=== PATIENT | male | born 1960 | race Caucasian/White ===

== ENCOUNTER 2018-09-22 11:05 | Emergency (ER) | payer MEDICARE, SELFPAY ==
[2018-09-22 11:13] VITALS: BP 175/98; PULSE 59; RESP 18; TEMP 36.8; O2SAT 98; BMI 22.9
--- NOTE | 2018-09-22 11:35 | DI.US.S_ITS ---
PROCEDURE: US EXTREMITY NONVASC UPPER LT INDICATIONS: LEFT FOREARM LUMP TECHNIQUE: Real-time scanning was performed of the left upper medial forearm lump, with image documentation. COMPARISON: None. FINDINGS: A 4.7 x 2.1 x 2.3 cm mass without internal vascularity which is comprised of both cystic and solid abnormalities is present, etiology uncertain. IMPRESSION: Extremity mass discussed above may represent a low-grade infection or even neoplasm. Depending on the clinical status followup by surgical consultation may be warranted. Further assessment could be obtained utilizing contrast enhanced MR scanning. Dictated by: Luke Aguirre M.D. on 09/22/2018 at 12:55 Approved by: Luke Aguirre M.D. on 09/22/2018 at 12:56
--- NOTE | 2018-09-22 11:35 | DI.RAD.S_ITS ---
PROCEDURE: XR ELBOW LT MIN 3V INDICATIONS: pain left elbow, felt pop while fishing TECHNIQUE: 3 views of the elbow were acquired. COMPARISON: None. FINDINGS: Bones: No fractures or dislocations. No suspicious bony lesions. Soft tissues: No elbow joint effusion. No suspicious soft tissue calcifications. IMPRESSION: Normal for age, source of current symptoms is not seen. Dictated by: Luke Aguirre M.D. on 09/22/2018 at 12:07 Approved by: Luke Aguirre M.D. on 09/22/2018 at 12:07
--- NOTE | 2018-09-22 11:54 | ED.UPPEXIN ---
HPI - Extremity Injury (Upper) General Chief Complaint: Extremity Injury, Upper Stated Complaint: LEFT ARM STRAINED/PAIN X60 DAYS Time Seen by Provider: 09/22/18 11:26 Source: patient Mode of arrival: ambulatory Limitations: no limitations History of Present Illness HPI narrative: This is a 57-year-old male comes to the emergency department with several months of left elbow pain. Patient states that it started when he was fishing for prolonged period time. He felt like there was pull on that arm Um during the entire time and at some point he felt a pop and started having pain. Patient states the pain has continued since then. Motor motion such as supination pronation seems to make it worse. He feels like there is a little bit weakness on that side compared to the other. Patient has noticed there is a little bit of a lump that sort of seems to come and go. He has not had any redness, no swelling no other signs of infection. He has been using heat and ice alternating for pain control as well as casually THC. Related Data Previous Rx's Medication Instructions Recorded amoxicillin-pot clavulanate 1 tab PO BID #20 tab 09/22/18 [Augmentin] Allergies Allergy/AdvReac Type Severity Reaction Status Date / Time No Known Drug Allergies Allergy Verified 09/22/18 11:59 Review of Systems Review of Systems All systems reviewed & are unremarkable except as noted in HPI and below Constitutional Denies fever(s) and Denies weakness Musculoskeletal Denies atrophy, Reports arthralgias (Shoulder and elbow), Denies joint swelling, Reports muscle weakness, Denies numbness, Denies tingling and Reports other (A lump next elbow) Integumentary/Breasts Denies rash, Denies unusual bruising and Denies wounds Neurologic Denies numbness, Denies tingling, Denies paresthesias and Denies weakness [facility] Social History Smoking Status: Former smoker substance use type: marijuana Exam Narrative Exam Narrative: GENERAL: Alert and oriented x three, well-nourished, well-appearing male in mild distress. HEENT: Head normocephalic, atraumatic, EOMI, pupils reactive, face symmetric, moist mucous membranes NECK: Supple, full range of motion CARDIOVASCULAR: Regular rate and rhythm without murmurs, rubs or gallops. RESPIRATORY: Breath sounds equal bilaterally, no wheezes rales or rhonchi. EXTREMITIES: Normal range of motion, patient has 5/5 strength with push and pull as well as equal miniature model maker. Patient does have some discomfort with pronation supination. He has what appears to be some soft tissue swelling and a circular region just distal to the elbow in the area of the radial head, it is soft, it is not fluctuance there does not have a palpable mass or nodule or lymph node. There is no erythema or warmth, there is no drainage. Patient has 2+ radial pulse. He does not have any other bony tenderness with palpation. He has full range of motion otherwise. Neurovascularly intact NEUROLOGICAL: Cranial nerves II through XII grossly intact. Moving all extremities SKIN: Warm, dry, no petechiae, no rashes or lesions. Initial Vital Signs Initial Vital Signs: Vital Signs Temperature 98.3 F 09/22/18 11:13 Pulse Rate 59 L 09/22/18 11:13 Respiratory Rate 18 09/22/18 11:13 Blood Pressure 175/98 H 09/22/18 11:13 Pulse Oximetry 98 09/22/18 11:13 Course Orders Ordered: ED Orders 09/22/18 11:35 US extremity nonvasc upper lt Stat XR elbow LT min 3V Stat Vital Signs - 8 hr 09/22/18 13:38 Pulse Rate 56 L Respiratory Rate 15 Blood Pressure [Right Arm] 183/93 H Pulse Oximetry 100 MDM - Extremity Injury (Upper) MDM Narrative Medical decision making narrative: Patient a mass on his ultrasound. Spoke with Dr. Marquez will follow with the patient of for possible biopsy he asks that patient follow up after 1 week oral abx. We are going to cover him with antibiotics for a week to see if this improves his symptoms although he has not had any infectious signs recently. Also given a prescription for outpatient MRI although he may not be able to get this obtained prior to seeing surgery for the biopsy. But this is not required if he is not able to. I discussed the importance of follow-up with the patient he is aware. X-ray shows no bony changes. Discharge Plan Departure Patient Disposition: Home Clinical Impression: Mass of left forearm Discharge Date/Time: 09/22/18 13:40 Interventions: ED Discharge Assessment Last Done: 09/22/18 13:41 Activity Restrictions/Additional Instructions: Follow-up in the next 7-10 days for recheck and biopsy of the mass in your left forearm. Call [place] morning for an appointment let the office know that you are following up for a lump in her forearm that is going to be biopsied. I spoke with Dr. Marquez today about your care. Take antibiotics until they are completely gone. Start them today. Even given a prescription for an MRI soft tissue of the upper extremity. Call Monday on the number provided to set up a appointment. Return to ER rapidly increasing swelling, new weakness, new numbness or other new or concerning symptoms. Prescriptions: New amoxicillin-pot clavulanate [Augmentin] 875-125 mg tablet 1 tab PO BID Qty: 20 RF: 0 Referrals: Naveen Marquez MD [Physician] -
[2018-09-22 13:38] VITALS: BP 183/93; PULSE 56; RESP 15; O2SAT 100
== END 2018-09-22 13:40 | disposition home or self-care (01) ==
PROVIDERS: Emergency Provider Emergency Medicine
DX: R22.32 Localized swelling, mass and lump, left upper limb (principal); X50.1XXA Overexertion from prolonged static or awkward postures, initial encounter
CPT/HCPCS: 73080; 76882; 99282; 99284

== ENCOUNTER 2022-12-14 10:35 | Emergency (ER) | payer MEDICARE, SELFPAY ==
--- NOTE | 2022-12-14 | DI.CT.S_ITS ---
PROCEDURE: CT ANGIO HEAD AND NECK INDICATIONS: MASS TECHNIQUE: After the administration of intravenous contrast, 1 mm thick sections acquired from the aortic arch through the [place]. Post-contrast 4.5 mm thick sections then re-acquired from the foramen magnum to the vertex. 3-dimensional [id number]-[id number] (MIP) and/or volume rendering reformats were acquired of the central intracranial vasculature and neck separately. For radiation dose reduction, the following was used: automated exposure control, adjustment of mA and/or kV according to patient size. COMPARISON: None. FINDINGS: Large enhancing left frontal lobe mass with multiple areas of intralesional hemorrhage. The mass primarily involves the left frontal lobar white matter with some extension to the cortex, however. Findings highly suspicious for glioblastoma. Maximum axial dimensions of the lesion are approximately 6.5 x 5.5 cm and maximum craniocaudal dimension is approximately 6.2 cm. There is extensive vasogenic edema in the left frontal lobe which produces moderate to severe mass effect manifesting as approximately 1.5 cm [id number] midline shift. There is near complete effacement of the 3rd ventricle and left lateral ventricle. Mild effacement of the perimesencephalic and ambient cisterns indicating an element of uncal herniation as well. No tonsillar herniation at this time. The aqua duct 4th ventricle are patent. No flow-limiting stenosis in the major intracranial or cervical arterial circulation. IMPRESSION: Large enhancing left frontal lobe mass with adjacent vasogenic edema, highly suspicious for glioblastoma. Significant moderate to severe mass effect with up to 1.5 cm left right midline shift and near complete effacement of the left lateral ventricle as well as the 3rd ventricle. Urgent neuro-surgical consultation recommended. Findings of this exam and the noncontrast head CT were discussed at 12:20 p.m. on 12/14/2022. Any quantitative measurements of stenosis were performed using NASCET criteria. Dictated by: Melvin Lynch M.D. on 12/14/2022 at 12:20 Approved by: Melvin Lynch M.D. on 12/14/2022 at 12:27
[2022-12-14 10:41] VITALS: BP 165/94; PULSE 95; RESP 15; TEMP 37.6; O2SAT 96; BMI 22.9
--- NOTE | 2022-12-14 10:47 | DI.RAD.S_ITS ---
ROCEDURE: XR CHEST 1V INDICATIONS: suspected sepsis TECHNIQUE: One view of the chest was acquired. COMPARISON: [facility], , CHEST 1 VIEW, 03/28/2015, 12:23. FINDINGS: Surgical changes and devices: Question an epidural catheter or electrode in the lower thoracic spine. Lungs and pleura: Lungs are clear. No pleural effusions or pneumothorax. Mediastinum: Mediastinal contours appear normal. Heart size is normal. Bones and chest wall: No suspicious bony lesions. Overlying soft tissues appear unremarkable. IMPRESSION: No acute cardiopulmonary disease. Dictated by: Simona Campoverde M.D. on 12/14/2022 at 10:24 Approved by: Simona Campoverde M.D. on 12/14/2022 at 10:25
[2022-12-14 11:06] LABS: Add Manual Diff / Slide Review NO; Basophils Absolute Auto 100 /uL (0-100); Basophils Percent Auto 0.5 % (0-2); Eosinophils Absolute Auto 100 /uL (0-450); Hematocrit 43.8 % (41-53); Lymphocytes Absolute Auto 1400 /uL (1100-4500); Lymphocytes Percent Auto 12.5 % (25-40); Mean Corpuscular HGB Conc 34.3 % (30-36); Mean Corpuscular Hemoglobin 31.2 PG (26-34); Monocytes Absolute Auto 1000 /uL (0-900); Monocytes Percent Auto 8.5 % (3-14); Neutrophils Absolute Auto 8800 /uL (1500-7000); Neutrophils Percent Auto 77.5 % (50-75); Platelet Count 199 X10^3/uL (150-400); Red Blood Cell Count 4.81 X10^6/uL (4.5-5.9); Red Cell Distribution Width 13.9 % (11.6-14.8); White Blood Cell Count 11.3 X10^3/uL (4.5-11.0)
[2022-12-14 11:12] LABS: INR 1.3 (0.9-1.3)
[2022-12-14 11:15] LABS: Alanine Aminotransferase 19 IU/L (<50); Alkaline Phosphatase 72 U/L (38-126); Aspartate Aminotransferase 23 IU/L (17-59); BUN Creatinine Ratio 23.9 (6-22); Bilirubin Total 0.9 mg/dL (0.2-1.3); Blood Urea Nitrogen 17 mg/dL (9-20); Calcium 9.6 mg/dL (8.4-10.2); Carbon Dioxide 22 mmol/L (22-32); Chloride 103 mmol/L (98-107); Estimated Glomerular Filt Rate > 60 mL/min (>60); Glucose 128 mg/dL (80-110); Lipase 49 U/L (23-300); PTT Partial Thromboplastin Tim 28 SECONDS (26-36); Potassium 3.4 mmol/L (3.4-5.1); Sodium 140 mmol/L (137-145); Total Protein 8.6 g/dL (6.3-8.2)
[2022-12-14 11:31] LABS: Procalcitonin 0.05 ng/mL (<0.5)
[2022-12-14 11:34] LABS: Influenza A - CEPHEID Flu A NEGATIVE (NEGATIVE); Influenza B - CEPHEID Flu B NEGATIVE (NEGATIVE); Respiratory Syncytial Virus Negative (Negative)
[2022-12-14 11:35] LABS: COVID-19 CEPHEID 4-PLEX PCR Negative (Negative)
--- NOTE | 2022-12-14 11:41 | ED_ITS ---
HPI - Neuro Symptoms/Deficit <Evelyne Skaggs DO - Last Filed: 12/19/22 06:50> General Chief Complaint: Neuro Symptoms/Deficit Stated Complaint: incoherent, cant hold a conversation, confusion Time Seen by Provider: 12/14/22 11:16 Source: patient Mode of arrival: Ambulatory History of Present Illness HPI Narrative: Patient is a 62-year-old male history of seizures on Keppra presenting with friend today for 1 week of confusion. Friend states that patient is generally not making any sense. He has been stumbling around. Patient states that he is not felt quite himself. He has low-grade fever here in the ED but he denies any chest pain cough nausea vomiting painful or frequent urination. He does have a slight headache. He reports that he was diagnosed with seizures in [place] by a neurologist who started him on Keppra a couple of months ago. He reports no alcohol abuse he says he had 3 seizures, but it is unclear why he is having seizures. He denies any weakness, numbness tingling. On Anticoagulants: No Related Data Previous Rx's Medication Instructions Recorded amoxicillin 875 mg-potassium 1 tab PO BID #20 tabs 09/22/18 clavulanate 125 mg tablet (Augmentin) Allergies Allergy/AdvReac Type Severity Reaction Status Date / Time ibuprofen AdvReac Mild itching Verified 12/14/22 10:41 Review of Systems <Evelyne Skaggs DO - Last Filed: 12/19/22 06:50> Review of Systems ROS Unobtainable: All systems reviewed & are unremarkable except as noted in HPI and below Hematologic/Lymphatic On Anticoagulants: No Patient History <Evelyne Skaggs DO - Last Filed: 12/19/22 06:50> Surgical History History of back surgery Family History Mother Hypertension Diabetes mellitus Social History marital status: unmarried,living together household members: significant other occupational status: unemployed Smoking Status: Former smoker alcohol intake: never substance use type: marijuana Smoking Status: Former smoker alcohol intake frequency: holidays/special occasions only Substance Use Type: does not use Exam <Evelyne Skaggs DO - Last Filed: 12/19/22 06:50> Initial Vital Signs Initial Vital Signs: Vital Signs Temperature 99.7 F H 12/14/22 10:41 Pulse Rate 95 H 12/14/22 10:41 Respiratory Rate 15 12/14/22 10:41 Blood Pressure 165/94 H 12/14/22 10:41 Pulse Oximetry 96 12/14/22 10:41 Oxygen Delivery Method 12/14/22 10:41 GENERAL: Alert pleasant makes 62-year-old male and in no acute distress. HEENT: Head atraumatic,EOMI, pupils reactive, face symmetric, moist mucous membranes CARDIOVASCULAR: Regular rate and rhythm without murmurs, rubs or gallops. RESPIRATORY: Breath sounds equal bilaterally, no wheezes rales or rhonchi. ABDOMEN: Soft, nontender. Normoactive bowel sounds all 4 quadrants. No guarding or rebound. EXTREMITIES: Normal range of motion, no clubbing or edema. Neurovascularly intact NEUROLOGICAL: Alert and oriented x4.Normal gait and speech. Cranial nerves II through XII grossly intact. Good [id number], good [id number], strength equal bilaterally, no dysarthria or aphasia, sensation in tact to soft touch bilaterally, no visual changes, no facial droop SKIN: Warm, dry, no laceration, no petechiae, no rashes or lesions. <Jorge Reveles MD - Last Filed: 12/20/22 07:04> Initial Vital Signs Initial Vital Signs: Vital Signs Temperature 99.7 F H 12/14/22 10:41 Pulse Rate 95 H 12/14/22 10:41 Respiratory Rate 15 12/14/22 10:41 Blood Pressure 165/94 H 12/14/22 10:41 Pulse Oximetry 96 12/14/22 10:41 Oxygen Delivery Method 12/14/22 10:41 <Meet Roper DO - Last Filed: 12/16/22 23:28> Initial Vital Signs Initial Vital Signs: Vital Signs Temperature 99.7 F H 12/14/22 10:41 Pulse Rate 95 H 12/14/22 10:41 Respiratory Rate 15 12/14/22 10:41 Blood Pressure 165/94 H 12/14/22 10:41 Pulse Oximetry 96 12/14/22 10:41 Oxygen Delivery Method 12/14/22 10:41 <Any Corbett DO - Last Filed: 12/17/22 07:08> Initial Vital Signs Initial Vital Signs: Vital Signs Temperature 99.7 F H 12/14/22 10:41 Pulse Rate 95 H 12/14/22 10:41 Respiratory Rate 15 12/14/22 10:41 Blood Pressure 165/94 H 12/14/22 10:41 Pulse Oximetry 96 12/14/22 10:41 Oxygen Delivery Method 12/14/22 10:41 Scores <Evelyne Skaggs DO - Last Filed: 12/19/22 06:50> NIH Stroke Scale Level of Conciousness: Alert, keenly responsive Ask month/age: Answers both questions correctly. Open/close eyes, close hand: Performs both tasks correctly Best gaze horizontal: Normal Visual freedman: No visual loss Facial palsy: Normal symetrical movement Left arm drift: No drift for full 10 sec Right arm drift: No drift for full 10 sec Left leg drift: No drift for full 5 sec Right leg drift: No drift for full 5 sec Limb ataxia: Absent Sensory on face/arms/legs: Normal, no sensory loss Best language: No aphasia, normal Dysarthria: Normal Extinction or inattention: No abnormality Total NIH Stroke scale score: 0 <Jorge Reveles MD - Last Filed: 12/20/22 07:04> NIH Stroke Scale Total NIH Stroke scale score: 0 <Meet Roper DO - Last Filed: 12/16/22 23:28> NIH Stroke Scale Total NIH Stroke scale score: 0 <Any Corbett DO - Last Filed: 12/17/22 07:08> NIH Stroke Scale Total NIH Stroke scale score: 0 Course <Evelyne Skaggs DO - Last Filed: 12/19/22 06:50> Orders Ordered: Discontinued Medications Acetaminophen (Acetaminophen 325 Mg Tablet) 650 mg PO Q6H [facility] Last Admin: 12/16/22 23:25 Dose: 650 mg Documented By: Admin: 12/16/22 17:22 Dose: 650 mg Documented By: Admin: 12/16/22 11:24 Dose: 650 mg Documented By: Admin: 12/16/22 05:17 Dose: Not Given Documented By: Admin: 12/15/22 23:06 Dose: Not Given Documented By: Admin: 12/15/22 17:50 Dose: Not Given Documented By: Admin: 12/15/22 14:02 Dose: Not Given Documented By: Admin: 12/15/22 05:25 Dose: Not Given Documented By: Admin: 12/14/22 23:35 Dose: Not Given Documented By: Admin: 12/14/22 17:30 Dose: 650 mg Documented By: VELMA Dexamethasone (Dexamethasone 10 Mg/Ml Vial) 10 mg IV NOW ONE Stop: 12/14/22 12:24 Last Admin: 12/14/22 12:31 Dose: 10 mg Documented By: DEEPA(2) Dexamethasone (Dexamethasone 4 Mg/Ml Vial) 4 mg IV Q6H [facility] Last Admin: 12/16/22 23:24 Dose: 4 mg Documented By: Admin: 12/16/22 17:30 Dose: 4 mg Documented By: Admin: 12/16/22 11:23 Dose: 4 mg Documented By: Admin: 12/16/22 04:23 Dose: 4 mg Documented By: Admin: 12/15/22 23:06 Dose: 4 mg Documented By: Admin: 12/15/22 17:50 Dose: 4 mg Documented By: Admin: 12/15/22 14:03 Dose: 4 mg Documented By: Admin: 12/15/22 05:19 Dose: 4 mg Documented By: Admin: 12/14/22 23:34 Dose: 4 mg Documented By: Admin: 12/14/22 17:30 Dose: 4 mg Documented By: VELMA Sodium Chloride (Normal Saline 0.9%) 1,000 mls @ 1,000 mls/hr IV BOLUS ONE Stop: 12/14/22 11:46 Last Infusion: 12/14/22 13:00 Dose: 0 mls/hr Documented By: Admin: 12/14/22 11:46 Dose: 1,000 mls/hr Documented By: VELMA Levetiracetam 500 mg/ Sodium (Chloride) 105 mls @ 420 mls/hr IV Q12H [facility] Last Infusion: 12/16/22 19:00 Dose: 0 mls/hr Documented By: Admin: 12/16/22 17:30 Dose: 420 mls/hr Documented By: Infusion: 12/16/22 05:00 Dose: 0 mls/hr Documented By: Admin: 12/16/22 04:23 Dose: 420 mls/hr Documented By: Infusion: 12/15/22 18:25 Dose: 0 mls/hr Documented By: Admin: 12/15/22 17:46 Dose: 420 mls/hr Documented By: Infusion: 12/15/22 05:35 Dose: 0 mls/hr Documented By: Admin: 12/15/22 05:19 Dose: 420 mls/hr Documented By: Infusion: 12/14/22 18:04 Dose: 0 mls/hr Documented By: Admin: 12/14/22 17:29 Dose: 420 mls/hr Documented By: KM Naloxone HCl (Naloxone 0.4 Mg/Ml Vial) 0.2 mg IV Q2MIN PRN PRN Reason: Opiate Reversal Vital Signs Vital signs: Vital Signs - 8 hr 12/17/22 02:20 Pulse Oximetry 97 <Jorge Reveles MD - Last Filed: 12/20/22 07:04> Course Course Narrative: 7:[address] Skaggs patient voiding orders have been placed. Patient on multiple waiting list for transfer. Patient is DNR with selective treatments. Daily labs have been ordered as well as medications. Neurosurgical service has been contacted. Orders Ordered: Discontinued Medications Acetaminophen (Acetaminophen 325 Mg Tablet) 650 mg PO Q6H [facility] Last Admin: 12/16/22 23:25 Dose: 650 mg Documented By: Admin: 12/16/22 17:22 Dose: 650 mg Documented By: Admin: 12/16/22 11:24 Dose: 650 mg Documented By: Admin: 12/16/22 05:17 Dose: Not Given Documented By: Admin: 12/15/22 23:06 Dose: Not Given Documented By: Admin: 12/15/22 17:50 Dose: Not Given Documented By: Admin: 12/15/22 14:02 Dose: Not Given Documented By: Admin: 12/15/22 05:25 Dose: Not Given Documented By: Admin: 12/14/22 23:35 Dose: Not Given Documented By: Admin: 12/14/22 17:30 Dose: 650 mg Documented By: VELMA Dexamethasone (Dexamethasone 10 Mg/Ml Vial) 10 mg IV NOW ONE Stop: 01/18/23 12:24 Last Admin: 12/14/22 12:31 Dose: 10 mg Documented By: DEEPA(2) Dexamethasone (Dexamethasone 4 Mg/Ml Vial) 4 mg IV Q6H [facility] Last Admin: 12/16/22 23:24 Dose: 4 mg Documented By: Admin: 12/16/22 17:30 Dose: 4 mg Documented By: Admin: 12/16/22 11:23 Dose: 4 mg Documented By: Admin: 12/16/22 04:23 Dose: 4 mg Documented By: Admin: 12/15/22 23:06 Dose: 4 mg Documented By: Admin: 12/15/22 17:50 Dose: 4 mg Documented By: Admin: 12/15/22 14:03 Dose: 4 mg Documented By: Admin: 12/15/22 05:19 Dose: 4 mg Documented By: Admin: 12/14/22 23:34 Dose: 4 mg Documented By: Admin: 12/14/22 17:30 Dose: 4 mg Documented By: VELMA Sodium Chloride (Normal Saline 0.9%) 1,000 mls @ 1,000 mls/hr IV BOLUS ONE Stop: 12/14/22 11:46 Last Infusion: 12/14/22 13:00 Dose: 0 mls/hr Documented By: Admin: 12/14/22 11:46 Dose: 1,000 mls/hr Documented By: VELMA Levetiracetam 500 mg/ Sodium (Chloride) 105 mls @ 420 mls/hr IV Q12H [facility] Last Infusion: 12/16/22 19:00 Dose: 0 mls/hr Documented By: Admin: 12/16/22 17:30 Dose: 420 mls/hr Documented By: Infusion: 12/16/22 05:00 Dose: 0 mls/hr Documented By: Admin: 12/16/22 04:23 Dose: 420 mls/hr Documented By: Infusion: 12/15/22 18:25 Dose: 0 mls/hr Documented By: Admin: 12/15/22 17:46 Dose: 420 mls/hr Documented By: Infusion: 12/15/22 05:35 Dose: 0 mls/hr Documented By: Admin: 12/15/22 05:19 Dose: 420 mls/hr Documented By: Infusion: 12/14/22 18:04 Dose: 0 mls/hr Documented By: Admin: 12/14/22 17:29 Dose: 420 mls/hr Documented By: VELMA Naloxone HCl (Naloxone 0.4 Mg/Ml Vial) 0.2 mg IV Q2MIN PRN PRN Reason: Opiate Reversal Vital Signs Vital signs: Vital Signs - 8 hr 12/17/22 02:20 Pulse Oximetry 97 <Meet Roper, DO - Last Filed: 12/16/22 23:28> Orders Ordered: Discontinued Medications Acetaminophen (Acetaminophen 325 Mg Tablet) 650 mg PO Q6H [facility] Last Admin: 12/16/22 23:25 Dose: 650 mg Documented By: Admin: 12/16/22 17:22 Dose: 650 mg Documented By: Admin: 12/16/22 11:24 Dose: 650 mg Documented By: Admin: 12/16/22 05:17 Dose: Not Given Documented By: Admin: 12/15/22 23:06 Dose: Not Given Documented By: Admin: 12/15/22 17:50 Dose: Not Given Documented By: Admin: 12/15/22 14:02 Dose: Not Given Documented By: Admin: 12/15/22 05:25 Dose: Not Given Documented By: Admin: 12/14/22 23:35 Dose: Not Given Documented By: Admin: 12/14/22 17:30 Dose: 650 mg Documented By: VELMA Dexamethasone (Dexamethasone 10 Mg/Ml Vial) 10 mg IV NOW ONE Stop: 12/14/22 12:24 Last Admin: 12/14/22 12:31 Dose: 10 mg Documented By: DEEPA(2) Dexamethasone (Dexamethasone 4 Mg/Ml Vial) 4 mg IV Q6H [facility] Last Admin: 12/16/22 23:24 Dose: 4 mg Documented By: Admin: 12/16/22 17:30 Dose: 4 mg Documented By: Admin: 12/16/22 11:23 Dose: 4 mg Documented By: Admin: 12/16/22 04:23 Dose: 4 mg Documented By: Admin: 12/15/22 23:06 Dose: 4 mg Documented By: Admin: 12/15/22 17:50 Dose: 4 mg Documented By: Admin: 12/15/22 14:03 Dose: 4 mg Documented By: Admin: 12/15/22 05:19 Dose: 4 mg Documented By: Admin: 12/14/22 23:34 Dose: 4 mg Documented By: Admin: 12/14/22 17:30 Dose: 4 mg Documented By: VELMA Sodium Chloride (Normal Saline 0.9%) 1,000 mls @ 1,000 mls/hr IV BOLUS ONE Stop: 12/14/22 11:46 Last Infusion: 12/14/22 13:00 Dose: 0 mls/hr Documented By: Admin: 12/14/22 11:46 Dose: 1,000 mls/hr Documented By: VELMA Levetiracetam 500 mg/ Sodium (Chloride) 105 mls @ 420 mls/hr IV Q12H [facility] Last Infusion: 12/16/22 19:00 Dose: 0 mls/hr Documented By: Admin: 12/16/22 17:30 Dose: 420 mls/hr Documented By: Infusion: 12/16/22 05:00 Dose: 0 mls/hr Documented By: Admin: 12/16/22 04:23 Dose: 420 mls/hr Documented By: Infusion: 12/15/22 18:25 Dose: 0 mls/hr Documented By: Admin: 12/15/22 17:46 Dose: 420 mls/hr Documented By: Infusion: 12/15/22 05:35 Dose: 0 mls/hr Documented By: Admin: 12/15/22 05:19 Dose: 420 mls/hr Documented By: Infusion: 12/14/22 18:04 Dose: 0 mls/hr Documented By: Admin: 12/14/22 17:29 Dose: 420 mls/hr Documented By: VELMA Naloxone HCl (Naloxone 0.4 Mg/Ml Vial) 0.2 mg IV Q2MIN PRN PRN Reason: Opiate Reversal Vital Signs Vital signs: Vital Signs - 8 hr 12/17/22 02:20 Pulse Oximetry 97 <Any Corbett, - Last Filed: 12/17/22 07:08> Orders Ordered: Discontinued Medications Acetaminophen (Acetaminophen 325 Mg Tablet) 650 mg PO Q6H [facility] Last Admin: 12/16/22 23:25 Dose: 650 mg Documented By: Admin: 12/16/22 17:22 Dose: 650 mg Documented By: Admin: 12/16/22 11:24 Dose: 650 mg Documented By: Admin: 12/16/22 05:17 Dose: Not Given Documented By: Admin: 12/15/22 23:06 Dose: Not Given Documented By: Admin: 12/15/22 17:50 Dose: Not Given Documented By: Admin: 12/15/22 14:02 Dose: Not Given Documented By: Admin: 12/15/22 05:25 Dose: Not Given Documented By: Admin: 12/14/22 23:35 Dose: Not Given Documented By: Admin: 12/14/22 17:30 Dose: 650 mg Documented By: VELMA Dexamethasone (Dexamethasone 10 Mg/Ml Vial) 10 mg IV NOW ONE Stop: 12/14/22 12:24 Last Admin: 12/14/22 12:31 Dose: 10 mg Documented By: DEEPA(2) Dexamethasone (Dexamethasone 4 Mg/Ml Vial) 4 mg IV Q6H [facility] Last Admin: 12/16/22 23:24 Dose: 4 mg Documented By: Admin: 12/16/22 17:30 Dose: 4 mg Documented By: Admin: 12/16/22 11:23 Dose: 4 mg Documented By: Admin: 12/16/22 04:23 Dose: 4 mg Documented By: Admin: 12/15/22 23:06 Dose: 4 mg Documented By: Admin: 12/15/22 17:50 Dose: 4 mg Documented By: Admin: 12/15/22 14:03 Dose: 4 mg Documented By: Admin: 12/15/22 05:19 Dose: 4 mg Documented By: Admin: 12/14/22 23:34 Dose: 4 mg Documented By: Admin: 12/14/22 17:30 Dose: 4 mg Documented By: VELMA Sodium Chloride (Normal Saline 0.9%) 1,000 mls @ 1,000 mls/hr IV BOLUS ONE Stop: 12/14/22 11:46 Last Infusion: 12/14/22 13:00 Dose: 0 mls/hr Documented By: Admin: 12/14/22 11:46 Dose: 1,000 mls/hr Documented By: VELMA Levetiracetam 500 mg/ Sodium (Chloride) 105 mls @ 420 mls/hr IV Q12H [facility] Last Infusion: 12/16/22 19:00 Dose: 0 mls/hr Documented By: Admin: 12/16/22 17:30 Dose: 420 mls/hr Documented By: Infusion: 12/16/22 05:00 Dose: 0 mls/hr Documented By: Admin: 12/16/22 04:23 Dose: 420 mls/hr Documented By: Infusion: 12/15/22 18:25 Dose: 0 mls/hr Documented By: Admin: 12/15/22 17:46 Dose: 420 mls/hr Documented By: Infusion: 12/15/22 05:35 Dose: 0 mls/hr Documented By: Admin: 12/15/22 05:19 Dose: 420 mls/hr Documented By: Infusion: 12/14/22 18:04 Dose: 0 mls/hr Documented By: Admin: 12/14/22 17:29 Dose: 420 mls/hr Documented By: VELMA Naloxone HCl (Naloxone 0.4 Mg/Ml Vial) 0.2 mg IV Q2MIN PRN PRN Reason: Opiate Reversal Consultations Consultation #1: Dr. Early neurosurgery, no Head CT unless acute decompensation. MRI if able but has back stimulator. No 3% or mannitol at this time. Time: 13:08 Vital Signs Vital signs: Vital Signs - 8 hr 12/17/22 02:20 Pulse Oximetry 97 MDM - Neuro Symptoms/Deficit <Evelyne Skaggs, - Last Filed: 12/19/22 06:50> Lab Data 12/16/22 08:12 12/16/22 08:12 Labs: Lab Results 12/14/22 12/14/22 12/14/22 Range/Units 10:43 10:54 10:54 WBC 11.3 H (4.5-11.0) X10^3/uL RBC 4.81 (4.5-5.9) X10^6/uL Hgb 15.0 (13.5-17.5) g/dL Hct 43.8 (41-53) % MCV 91.0 (80-100) fL MCH 31.2 (26-34) PG MCHC 34.3 (30-36) % RDW 13.9 (11.6-14.8) % Plt Count 199 (150-400) X10^3/uL Neut % (Auto) 77.5 H (50-75) % Lymph % (Auto) 12.5 L (25-40) % Sampson % (Auto) 8.5 (3-14) % Eos % (Auto) 1.0 L (2-4) % Baso % (Auto) 0.5 (0-2) % Neut # (Auto) 8800 H (4912-0032) /uL Lymph # (Auto) 1400 (2911-6256) /uL Sampson # (Auto) 1000 H (0-900) /uL Eos # (Auto) 100 (0-450) /uL Baso # (Auto) 100 (0-100) /uL PT 15.0 H (10.1-12.7) SECONDS INR 1.3 (0.9-1.3) APTT 28 (26-36) SECONDS Sodium (137-145) mmol/L Potassium (3.4-5.1) mmol/L Chloride (98-107) mmol/L Carbon Dioxide (22-32) mmol/L BUN (9-20) mg/dL Creatinine (0.66-1.25) mg/dL Estimated GFR (>60) mL/min BUN/Creatinine Ratio (6-22) Glucose (80-110) mg/dL Lactate (0.7-2.1) mmol/L Calcium (8.4-10.2) mg/dL Total Bilirubin (0.2-1.3) mg/dL AST (17-59) IU/L ALT (<50) IU/L Alkaline Phosphatase (38-126) U/L Total Protein (6.3-8.2) g/dL Albumin (3.5-5.0) g/dL Globulin (1.7-4.1) g/dL Albumin/Globulin Ratio (1.0-2.8) Lipase (23-300) U/L Procalcitonin (<0.5) ng/mL Urine RBC (0-5/HPF) Urine WBC (0-5/HPF) Urine Bacteria (None) Ur Culture Indicated? Micro UA Comment SARS-CoV-2 (PCR) Negative (Negative) Influenza A (RT-PCR) Flu a negative (NEGATIVE) Influenza B (RT-PCR) Flu b negative (NEGATIVE) RSV (PCR) Negative (Negative) 01/18/23 01/18/23 01/18/23 Range/Units 10:54 10:54 13:00 WBC (4.5-11.0) X10^3/uL RBC (4.5-5.9) X10^6/uL Hgb (13.5-17.5) g/dL Hct (41-53) % MCV (80-100) fL MCH (26-34) PG MCHC (30-36) % RDW (11.6-14.8) % Plt Count (150-400) X10^3/uL Neut % (Auto) (50-75) % Lymph % (Auto) (25-40) % Sampson % (Auto) (3-14) % Eos % (Auto) (2-4) % Baso % (Auto) (0-2) % Neut # (Auto) (1650-1848) /uL Lymph # (Auto) (4558-1653) /uL Sampson # (Auto) (0-900) /uL Eos # (Auto) (0-450) /uL Baso # (Auto) (0-100) /uL PT (10.1-12.7) SECONDS INR (0.9-1.3) APTT (26-36) SECONDS Sodium 140 (137-145) mmol/L Potassium 3.4 (3.4-5.1) mmol/L Chloride 103 (98-107) mmol/L Carbon Dioxide 22 (22-32) mmol/L BUN 17 (9-20) mg/dL Creatinine 0.71 (0.66-1.25) mg/dL Estimated GFR > 60 (>60) mL/min BUN/Creatinine Ratio 23.9 H (6-22) Glucose 128 H (80-110) mg/dL Lactate 1.0 (0.7-2.1) mmol/L Calcium 9.6 (8.4-10.2) mg/dL Total Bilirubin 0.9 (0.2-1.3) mg/dL AST 23 (17-59) IU/L ALT 19 (<50) IU/L Alkaline Phosphatase 72 (38-126) U/L Total Protein 8.6 H (6.3-8.2) g/dL Albumin 4.5 (3.5-5.0) g/dL Globulin 4.1 (1.7-4.1) g/dL Albumin/Globulin Ratio 1.1 (1.0-2.8) Lipase 49 (23-300) U/L Procalcitonin 0.05 (<0.5) ng/mL Urine RBC None seen (0-5/HPF) Urine WBC None seen (0-5/HPF) Urine Bacteria None seen (None) Ur Culture Indicated? Cult not indicated Micro UA Comment Microscopic normal SARS-CoV-2 (PCR) (Negative) Influenza A (RT-PCR) (NEGATIVE) Influenza B (RT-PCR) (NEGATIVE) RSV (PCR) (Negative) 12/15/22 12/15/22 12/16/22 Range/Units 09:11 09:11 08:12 WBC 13.0 H 15.5 H (4.5-11.0) X10^3/uL RBC 4.51 4.47 L (4.5-5.9) X10^6/uL Hgb 13.9 13.7 (13.5-17.5) g/dL Hct 40.8 L 41.0 (41-53) % MCV 90.5 91.7 (80-100) fL MCH 30.7 30.6 (26-34) PG MCHC 33.9 33.4 (30-36) % RDW 13.9 14.2 (11.6-14.8) % Plt Count 196 188 (150-400) X10^3/uL Neut % (Auto) 89.2 H 92.8 H (50-75) % Lymph % (Auto) 7.7 L 4.6 L (25-40) % Sampson % (Auto) 3.0 2.3 L (3-14) % Eos % (Auto) 0.0 L 0.1 L (2-4) % Baso % (Auto) 0.1 0.2 (0-2) % Neut # (Auto) 46599 H 13648 H (2850-3564) /uL Lymph # (Auto) 1000 L 700 L (3645-7184) /uL Sampson # (Auto) 400 400 (0-900) /uL Eos # (Auto) 0 0 (0-450) /uL Baso # (Auto) 0 0 (0-100) /uL PT (10.1-12.7) SECONDS INR (0.9-1.3) APTT (26-36) SECONDS Sodium 140 (137-145) mmol/L Potassium 3.4 (3.4-5.1) mmol/L Chloride 105 (98-107) mmol/L Carbon Dioxide 25 (22-32) mmol/L BUN 15 (9-20) mg/dL Creatinine 0.64 L (0.66-1.25) mg/dL Estimated GFR > 60 (>60) mL/min BUN/Creatinine Ratio 23.4 H (6-22) Glucose 209 H (80-110) mg/dL Lactate (0.7-2.1) mmol/L Calcium 9.2 (8.4-10.2) mg/dL Total Bilirubin (0.2-1.3) mg/dL AST (17-59) IU/L ALT (<50) IU/L Alkaline Phosphatase (38-126) U/L Total Protein (6.3-8.2) g/dL Albumin (3.5-5.0) g/dL Globulin (1.7-4.1) g/dL Albumin/Globulin Ratio (1.0-2.8) Lipase (23-300) U/L Procalcitonin (<0.5) ng/mL Urine RBC (0-5/HPF) Urine WBC (0-5/HPF) Urine Bacteria (None) Ur Culture Indicated? Micro UA Comment SARS-CoV-2 (PCR) (Negative) Influenza A (RT-PCR) (NEGATIVE) Influenza B (RT-PCR) (NEGATIVE) RSV (PCR) (Negative) 12/16/22 Range/Units 08:12 WBC (4.5-11.0) X10^3/uL RBC (4.5-5.9) X10^6/uL Hgb (13.5-17.5) g/dL Hct (41-53) % MCV (80-100) fL MCH (26-34) PG MCHC (30-36) % RDW (11.6-14.8) % Plt Count (150-400) X10^3/uL Neut % (Auto) (50-75) % Lymph % (Auto) (25-40) % Sampson % (Auto) (3-14) % Eos % (Auto) (2-4) % Baso % (Auto) (0-2) % Neut # (Auto) (7518-3691) /uL Lymph # (Auto) (3807-6419) /uL Sampson # (Auto) (0-900) /uL Eos # (Auto) (0-450) /uL Baso # (Auto) (0-100) /uL PT (10.1-12.7) SECONDS INR (0.9-1.3) APTT (26-36) SECONDS Sodium 141 (137-145) mmol/L Potassium 3.9 (3.4-5.1) mmol/L Chloride 108 H (98-107) mmol/L Carbon Dioxide 24 (22-32) mmol/L BUN 19 (9-20) mg/dL Creatinine 0.64 L (0.66-1.25) mg/dL Estimated GFR > 60 (>60) mL/min BUN/Creatinine Ratio 29.7 H (6-22) Glucose 136 H (80-110) mg/dL Lactate (0.7-2.1) mmol/L Calcium 9.1 (8.4-10.2) mg/dL Total Bilirubin 0.5 (0.2-1.3) mg/dL AST 19 (17-59) IU/L ALT 19 (<50) IU/L Alkaline Phosphatase 64 (38-126) U/L Total Protein 7.7 (6.3-8.2) g/dL Albumin 4.1 (3.5-5.0) g/dL Globulin 3.6 (1.7-4.1) g/dL Albumin/Globulin Ratio 1.1 (1.0-2.8) Lipase 165 D (23-300) U/L Procalcitonin (<0.5) ng/mL Urine RBC (0-5/HPF) Urine WBC (0-5/HPF) Urine Bacteria (None) Ur Culture Indicated? Micro UA Comment SARS-CoV-2 (PCR) (Negative) Influenza A (RT-PCR) (NEGATIVE) Influenza B (RT-PCR) (NEGATIVE) RSV (PCR) (Negative) Urine Dip Bedside Urine Glucose Negative Bedside Urine Bilirubin - Negative Bedside Urine Ketone - Negative Urine Specific [place] 1.010 Bedside Urine Occult Blood - Negative Bedside Urine pH 6.0 Bedside Urine Protein +/- 15 Bedside Urine Urobilinogen - Negative Bedside Urine Nitrite - Negative Bedside Urine Leukocytes - Negative Esterase ECG Data Interpretation: Normal sinus rhythm rate 73 LA interval 118 QRS [address] changes no T- wave in no priors to compare MDM Narrative Medical decision making narrative: Patient is a 62-year-old male history of seizures on Keppra presenting with friend today for 1 week of confusion. Friend states that patient is generally not making any sense. He has been stumbling around. Patient states that he is not felt quite himself. He has low-grade fever here in the ED but he denies any chest pain cough nausea vomiting painful or frequent urination. He does have a slight headache. He reports that he was diagnosed with seizures in [place] by a neurologist who started him on Keppra a couple of months ago. He reports no alcohol abuse he says he had 3 seizures, but it is unclear why he is having seizures. He denies any weakness, numbness tingling. Head CT and CT angio confirm large left frontal mass with small inter parenchymal hemorrhages. There is significant left shift of 1.5 cm [id number] as well. Patient is given dexamethasone to help with vasogenic edema. Mass concerning for glioblastoma. I spoke with Dr. Lopes's at [facility] who requested an MRI. However patient has a [employer] pain stimulator in his left lower quadrant. Hospital policy here states that he can not go into the MRI. Although he likely had MR in [place]. Dr. Lopes's requested chest abdomen pelvis. No further primary cancer is found. This is likely a primary glioblastoma with impending herniation. He remains neurologically intact. Slightly confused but able to ambulate to the restroom. No evidence of infection. No significant leukocytosis or electrolyte abnormality. Patient is on wait list at [facility]. [facility] has been consulted but not taking patients [facility] also consulted not taking patients no wait list on either of those places. [facility] is on a wait list. Patient was signed out to Dr. Macedo for further management. [facility] CC: Complicating co-morbidities: Data collected from: Medical records reviewed: Differential considered: Includes but not limited to Exam documented above, pertinent findings include: Lab Test results independently reviewed as above. Pertinent findings: Independently reviewed EKG as above Imaging studies independently reviewed: Consultations: 12:10 a.m.. I did speak with [facility] neurosurgical services Dr. Peters, at this time no surgical intervention indicated. This patient will need medical management and dialogue with oncology and hospice care as well for further prognosis and treatment plan. He will be happy to follow along but at this time patient is nonsurgical, Anushka LUTHER Treatments: Re-evaluations: December 15, 2022 at 2:38 a.m.. Daughter just arrived, she flew in from [place] and just arrived here from the airport from [place]. I have revi ewed with her and patient and friends at bedside regarding my discussion with Neurosurgery Dr. Carlson, at this time no surgical intervention indicated. However they do need to decide for treatment plan as far as no treatment/comfort measures or selective treatment and how much they would like to have done. At this time prognosis unknown. Options are unknown for treatment. If they do desire discussion and treatment plans, they do understand he will need to be transferred and wait time is uncertain for bed availability as he is on wait list for many hospitalist up and down [facility]. Other option would be admitted here if comfort measures only. Which would need hospice evaluation. I did speak with hospitalist earlier dr layton, that would be possible to admit here only if DNR and comfort measures only and to pursue hospice care. 3:19 a.m.. I spoke with patient and daughter. They have concluded that they would like full treatment. They would like to pursue transfer in order to speak with Oncology Services and establish treatment plan. Discussion: Appropriate for transfer. Discussion with patient as well as daughter at bedside, they desire to pursue full treatment and would like oncology services. They do not wish for hospice care. Diagnosis: Glioblastoma Disposition: see below, along with detailed discharge instructions that have been reviewed with patient as well as indications for ED re-evaluation and additional outpatient follow up 12/15/22 2599 ([place]) Patient seen evaluated by myself this morning. Awake alert eating breakfast. Daughter now at bedside. The patient has no complaints this morning. Multiple family members into visit. Neurologically intact ambulating to the restroom. 1415 Dr. Escamilla medical oncology updated on patient's symptoms test results. Based on [facility] neurosurgeon recommendation of probable not surgical I asked about medical treatment and transferring to [facility]. However Dr. Escamilla still requests that there be a biopsy and evaluation by Neurosurgery so at this time [facility] is not an appropriate facility for him. Blood work this morning is overall reassuring and stable. Confirmed with [facility] Accepted at Signed out to Dr. Roper <Jorge Reveles MD - Last Filed: 12/20/22 07:04> Lab Data Labs: Lab Results 12/14/22 12/14/22 12/14/22 Range/Units 10:43 10:54 10:54 WBC 11.3 H (4.5-11.0) X10^3/uL RBC 4.81 (4.5-5.9) X10^6/uL Hgb 15.0 (13.5-17.5) g/dL Hct 43.8 (41-53) % MCV 91.0 (80-100) fL MCH 31.2 (26-34) PG MCHC 34.3 (30-36) % RDW 13.9 (11.6-14.8) % Plt Count 199 (150-400) X10^3/uL Neut % (Auto) 77.5 H (50-75) % Lymph % (Auto) 12.5 L (25-40) % Sampson % (Auto) 8.5 (3-14) % Eos % (Auto) 1.0 L (2-4) % Baso % (Auto) 0.5 (0-2) % Neut # (Auto) 8800 H (6429-4465) /uL Lymph # (Auto) 1400 (2365-3934) /uL Sampson # (Auto) 1000 H (0-900) /uL Eos # (Auto) 100 (0-450) /uL Baso # (Auto) 100 (0-100) /uL PT 15.0 H (10.1-12.7) SECONDS INR 1.3 (0.9-1.3) APTT 28 (26-36) SECONDS Sodium (137-145) mmol/L Potassium (3.4-5.1) mmol/L Chloride (98-107) mmol/L Carbon Dioxide (22-32) mmol/L BUN (9-20) mg/dL Creatinine (0.66-1.25) mg/dL Estimated GFR (>60) mL/min BUN/Creatinine Ratio (6-22) Glucose (80-110) mg/dL Lactate (0.7-2.1) mmol/L Calcium (8.4-10.2) mg/dL Total Bilirubin (0.2-1.3) mg/dL AST (17-59) IU/L ALT (<50) IU/L Alkaline Phosphatase (38-126) U/L Total Protein (6.3-8.2) g/dL Albumin (3.5-5.0) g/dL Globulin (1.7-4.1) g/dL Albumin/Globulin Ratio (1.0-2.8) Lipase (23-300) U/L Procalcitonin (<0.5) ng/mL Urine RBC (0-5/HPF) Urine WBC (0-5/HPF) Urine Bacteria (None) Ur Culture Indicated? Micro UA Comment SARS-CoV-2 (PCR) Negative (Negative) Influenza A (RT-PCR) Flu a negative (NEGATIVE) Influenza B (RT-PCR) Flu b negative (NEGATIVE) RSV (PCR) Negative (Negative) 12/14/22 12/14/22 12/14/22 Range/Units 10:54 10:54 13:00 WBC (4.5-11.0) X10^3/uL RBC (4.5-5.9) X10^6/uL Hgb (13.5-17.5) g/dL Hct (41-53) % MCV (80-100) fL MCH (26-34) PG MCHC (30-36) % RDW (11.6-14.8) % Plt Count (150-400) X10^3/uL Neut % (Auto) (50-75) % Lymph % (Auto) (25-40) % Sampson % (Auto) (3-14) % Eos % (Auto) (2-4) % Baso % (Auto) (0-2) % Neut # (Auto) (5219-2752) /uL Lymph # (Auto) (1993-9072) /uL Sampson # (Auto) (0-900) /uL Eos # (Auto) (0-450) /uL Baso # (Auto) (0-100) /uL PT (10.1-12.7) SECONDS INR (0.9-1.3) APTT (26-36) SECONDS Sodium 140 (137-145) mmol/L Potassium 3.4 (3.4-5.1) mmol/L Chloride 103 (98-107) mmol/L Carbon Dioxide 22 (22-32) mmol/L BUN 17 (9-20) mg/dL Creatinine 0.71 (0.66-1.25) mg/dL Estimated GFR > 60 (>60) mL/min BUN/Creatinine Ratio 23.9 H (6-22) Glucose 128 H (80-110) mg/dL Lactate 1.0 (0.7-2.1) mmol/L Calcium 9.6 (8.4-10.2) mg/dL Total Bilirubin 0.9 (0.2-1.3) mg/dL AST 23 (17-59) IU/L ALT 19 (<50) IU/L Alkaline Phosphatase 72 (38-126) U/L Total Protein 8.6 H (6.3-8.2) g/dL Albumin 4.5 (3.5-5.0) g/dL Globulin 4.1 (1.7-4.1) g/dL Albumin/Globulin Ratio 1.1 (1.0-2.8) Lipase 49 (23-300) U/L Procalcitonin 0.05 (<0.5) ng/mL Urine RBC None seen (0-5/HPF) Urine WBC None seen (0-5/HPF) Urine Bacteria None seen (None) Ur Culture Indicated? Cult not indicated Micro UA Comment Microscopic normal SARS-CoV-2 (PCR) (Negative) Influenza A (RT-PCR) (NEGATIVE) Influenza B (RT-PCR) (NEGATIVE) RSV (PCR) (Negative) 12/15/22 12/15/22 12/16/22 Range/Units 09:11 09:11 08:12 WBC 13.0 H 15.5 H (4.5-11.0) X10^3/uL RBC 4.51 4.47 L (4.5-5.9) X10^6/uL Hgb 13.9 13.7 (13.5-17.5) g/dL Hct 40.8 L 41.0 (41-53) % MCV 90.5 91.7 (80-100) fL MCH 30.7 30.6 (26-34) PG MCHC 33.9 33.4 (30-36) % RDW 13.9 14.2 (11.6-14.8) % Plt Count 196 188 (150-400) X10^3/uL Neut % (Auto) 89.2 H 92.8 H (50-75) % Lymph % (Auto) 7.7 L 4.6 L (25-40) % Sampson % (Auto) 3.0 2.3 L (3-14) % Eos % (Auto) 0.0 L 0.1 L (2-4) % Baso % (Auto) 0.1 0.2 (0-2) % Neut # (Auto) 74863 H 69011 H (0095-2310) /uL Lymph # (Auto) 1000 L 700 L (2629-1195) /uL Sampson # (Auto) 400 400 (0-900) /uL Eos # (Auto) 0 0 (0-450) /uL Baso # (Auto) 0 0 (0-100) /uL PT (10.1-12.7) SECONDS INR (0.9-1.3) APTT (26-36) SECONDS Sodium 140 (137-145) mmol/L Potassium 3.4 (3.4-5.1) mmol/L Chloride 105 (98-107) mmol/L Carbon Dioxide 25 (22-32) mmol/L BUN 15 (9-20) mg/dL Creatinine 0.64 L (0.66-1.25) mg/dL Estimated GFR > 60 (>60) mL/min BUN/Creatinine Ratio 23.4 H (6-22) Glucose 209 H (80-110) mg/dL Lactate (0.7-2.1) mmol/L Calcium 9.2 (8.4-10.2) mg/dL Total Bilirubin (0.2-1.3) mg/dL AST (17-59) IU/L ALT (<50) IU/L Alkaline Phosphatase (38-126) U/L Total Protein (6.3-8.2) g/dL Albumin (3.5-5.0) g/dL Globulin (1.7-4.1) g/dL Albumin/Globulin Ratio (1.0-2.8) Lipase (23-300) U/L Procalcitonin (<0.5) ng/mL Urine RBC (0-5/HPF) Urine WBC (0-5/HPF) Urine Bacteria (None) Ur Culture Indicated? Micro UA Comment SARS-CoV-2 (PCR) (Negative) Influenza A (RT-PCR) (NEGATIVE) Influenza B (RT-PCR) (NEGATIVE) RSV (PCR) (Negative) 12/16/22 Range/Units 08:12 WBC (4.5-11.0) X10^3/uL RBC (4.5-5.9) X10^6/uL Hgb (13.5-17.5) g/dL Hct (41-53) % MCV (80-100) fL MCH (26-34) PG MCHC (30-36) % RDW (11.6-14.8) % Plt Count (150-400) X10^3/uL Neut % (Auto) (50-75) % Lymph % (Auto) (25-40) % Sampson % (Auto) (3-14) % Eos % (Auto) (2-4) % Baso % (Auto) (0-2) % Neut # (Auto) (9802-6847) /uL Lymph # (Auto) (6782-1690) /uL Sampson # (Auto) (0-900) /uL Eos # (Auto) (0-450) /uL Baso # (Auto) (0-100) /uL PT (10.1-12.7) SECONDS INR (0.9-1.3) APTT (26-36) SECONDS Sodium 141 (137-145) mmol/L Potassium 3.9 (3.4-5.1) mmol/L Chloride 108 H (98-107) mmol/L Carbon Dioxide 24 (22-32) mmol/L BUN 19 (9-20) mg/dL Creatinine 0.64 L (0.66-1.25) mg/dL Estimated GFR > 60 (>60) mL/min BUN/Creatinine Ratio 29.7 H (6-22) Glucose 136 H (80-110) mg/dL Lactate (0.7-2.1) mmol/L Calcium 9.1 (8.4-10.2) mg/dL Total Bilirubin 0.5 (0.2-1.3) mg/dL AST 19 (17-59) IU/L ALT 19 (<50) IU/L Alkaline Phosphatase 64 (38-126) U/L Total Protein 7.7 (6.3-8.2) g/dL Albumin 4.1 (3.5-5.0) g/dL Globulin 3.6 (1.7-4.1) g/dL Albumin/Globulin Ratio 1.1 (1.0-2.8) Lipase 165 D (23-300) U/L Procalcitonin (<0.5) ng/mL Urine RBC (0-5/HPF) Urine WBC (0-5/HPF) Urine Bacteria (None) Ur Culture Indicated? Micro UA Comment SARS-CoV-2 (PCR) (Negative) Influenza A (RT-PCR) (NEGATIVE) Influenza B (RT-PCR) (NEGATIVE) RSV (PCR) (Negative) Urine Dip Bedside Urine Glucose Negative Bedside Urine Bilirubin - Negative Bedside Urine Ketone - Negative Urine Specific Trona 1.010 Bedside Urine Occult Blood - Negative Bedside Urine pH 6.0 Bedside Urine Protein +/- 15 Bedside Urine Urobilinogen - Negative Bedside Urine Nitrite - Negative Bedside Urine Leukocytes - Negative Esterase MDM Narrative Medical decision making narrative: Patient is a 62-year-old male history of seizures on Keppra presenting with friend today for 1 week of confusion. Friend states that patient is generally not making any sense. He has been stumbling around. Patient states that he is not felt quite himself. He has low-grade fever here in the ED but he denies any chest pain cough nausea vomiting painful or frequent urination. He does have a slight headache. He reports that he was diagnosed with seizures in [place] by a neurologist who started him on Keppra a couple of months ago. He reports no alcohol abuse he says he had 3 seizures, but it is unclear why he is having seizures. He denies any weakness, numbness tingling. MDM CC: Complicating co-morbidities: Data collected from: Medical records reviewed: Differential considered: Includes but not limited to Exam documented above, pertinent findings include: Lab Test results independently reviewed as above. Pertinent findings: Independently reviewed EKG as above Imaging studies independently reviewed: Consultations: 12:10 a.m.. I did speak with [facility] neurosurgical services Dr. Peters, at this time no surgical intervention indicated. This patient will need medical management and dialogue with oncology and hospice care as well for further prognosis and treatment plan. He will be happy to follow along but at this time patient is nonsurgical, Anushka LUTHER Treatments: Re-evaluations: December 15, 2022 at 2:38 a.m.. Daughter just arrived, she flew in from [place] and just arrived here from the airport from [place]. I have reviewed with her and patient and friends at bedside regarding my discussion with Neurosurgery Dr. Carlson, at this time no surgical intervention indicated. However they do need to decide for treatment plan as far as no treatment/comfort measures or selective treatment and how much they would like to have done. At this time prognosis unknown. Options are unknown for treatment. If they do desire discussion and treatment plans, they do understand he will need to be transferred and wait time is uncertain for bed availability as he is on wait list for many hospitalist up and down [facility]. Other option would be admitted here if comfort measures only. Which would need hospice evaluation. I did speak with hospitalist earlier dr layton, that would be possible to admit here only if DNR and comfort measures only and to pursue hospice care. 3:19 a.m.. I spoke with patient and daughter. They have concluded that they would like full treatment. They would like to pursue transfer in order to speak with Oncology Services and establish treatment plan. Discussion: Appropriate for transfer. Discussion with patient as well as daughter at bedside, they desire to pursue full treatment and would like oncology services. They do not wish for hospice care. Diagnosis: Glioblastoma Disposition: see below, along with detailed discharge instructions that have been reviewed with patient as well as indications for ED re-evaluation and additional outpatient follow up <Meet Roper DO - Last Filed: 12/16/22 23:28> Differential Diagnosis Differential diagnosis: Likely delirium and other (Seizures, metabolic encephalopathy, infection, and others) Condition is:: Well Controlled Medical Records Attestation: I reviewed the patient's medical records. Lab Data Attestation: I reviewed the patient's lab results. Labs: Lab Results 12/14/22 12/14/22 12/14/22 Range/Units 10:43 10:54 10:54 WBC 11.3 H (4.5-11.0) X10^3/uL RBC 4.81 (4.5-5.9) X10^6/uL Hgb 15.0 (13.5-17.5) g/dL Hct 43.8 (41-53) % MCV 91.0 (80-100) fL MCH 31.2 (26-34) PG MCHC 34.3 (30-36) % RDW 13.9 (11.6-14.8) % Plt Count 199 (150-400) X10^3/uL Neut % (Auto) 77.5 H (50-75) % Lymph % (Auto) 12.5 L (25-40) % Sampson % (Auto) 8.5 (3-14) % Eos % (Auto) 1.0 L (2-4) % Baso % (Auto) 0.5 (0-2) % Neut # (Auto) 8800 H (8012-4242) /uL Lymph # (Auto) 1400 (4439-7824) /uL Sampson # (Auto) 1000 H (0-900) /uL Eos # (Auto) 100 (0-450) /uL Baso # (Auto) 100 (0-100) /uL PT 15.0 H (10.1-12.7) SECONDS INR 1.3 (0.9-1.3) APTT 28 (26-36) SECONDS Sodium (137-145) mmol/L Potassium (3.4-5.1) mmol/L Chloride (98-107) mmol/L Carbon Dioxide (22-32) mmol/L BUN (9-20) mg/dL Creatinine (0.66-1.25) mg/dL Estimated GFR (>60) mL/min BUN/Creatinine Ratio (6-22) Glucose (80-110) mg/dL Lactate (0.7-2.1) mmol/L Calcium (8.4-10.2) mg/dL Total Bilirubin (0.2-1.3) mg/dL AST (17-59) IU/L ALT (<50) IU/L Alkaline Phosphatase (38-126) U/L Total Protein (6.3-8.2) g/dL Albumin (3.5-5.0) g/dL Globulin (1.7-4.1) g/dL Albumin/Globulin Ratio (1.0-2.8) Lipase (23-300) U/L Procalcitonin (<0.5) ng/mL Urine RBC (0-5/HPF) Urine WBC (0-5/HPF) Urine Bacteria (None) Ur Culture Indicated? Micro UA Comment SARS-CoV-2 (PCR) Negative (Negative) Influenza A (RT-PCR) Flu a negative (NEGATIVE) Influenza B (RT-PCR) Flu b negative (NEGATIVE) RSV (PCR) Negative (Negative) 12/14/22 12/14/22 12/14/22 Range/Units 10:54 10:54 13:00 WBC (4.5-11.0) X10^3/uL RBC (4.5-5.9) X10^6/uL Hgb (13.5-17.5) g/dL Hct (41-53) % MCV (80-100) fL MCH (26-34) PG MCHC (30-36) % RDW (11.6-14.8) % Plt Count (150-400) X10^3/uL Neut % (Auto) (50-75) % Lymph % (Auto) (25-40) % Sampson % (Auto) (3-14) % Eos % (Auto) (2-4) % Baso % (Auto) (0-2) % Neut # (Auto) (9228-8984) /uL Lymph # (Auto) (5091-1861) /uL Sampson # (Auto) (0-900) /uL Eos # (Auto) (0-450) /uL Baso # (Auto) (0-100) /uL PT (10.1-12.7) SECONDS INR (0.9-1.3) APTT (26-36) SECONDS Sodium 140 (137-145) mmol/L Potassium 3.4 (3.4-5.1) mmol/L Chloride 103 (98-107) mmol/L Carbon Dioxide 22 (22-32) mmol/L BUN 17 (9-20) mg/dL Creatinine 0.71 (0.66-1.25) mg/dL Estimated GFR > 60 (>60) mL/min BUN/Creatinine Ratio 23.9 H (6-22) Glucose 128 H (80-110) mg/dL Lactate 1.0 (0.7-2.1) mmol/L Calcium 9.6 (8.4-10.2) mg/dL Total Bilirubin 0.9 (0.2-1.3) mg/dL AST 23 (17-59) IU/L ALT 19 (<50) IU/L Alkaline Phosphatase 72 (38-126) U/L Total Protein 8.6 H (6.3-8.2) g/dL Albumin 4.5 (3.5-5.0) g/dL Globulin 4.1 (1.7-4.1) g/dL Albumin/Globulin Ratio 1.1 (1.0-2.8) Lipase 49 (23-300) U/L Procalcitonin 0.05 (<0.5) ng/mL Urine RBC None seen (0-5/HPF) Urine WBC None seen (0-5/HPF) Urine Bacteria None seen (None) Ur Culture Indicated? Cult not indicated Micro UA Comment Microscopic normal SARS-CoV-2 (PCR) (Negative) Influenza A (RT-PCR) (NEGATIVE) Influenza B (RT-PCR) (NEGATIVE) RSV (PCR) (Negative) 12/15/22 12/15/22 12/16/22 Range/Units 09:11 09:11 08:12 WBC 13.0 H 15.5 H (4.5-11.0) X10^3/uL RBC 4.51 4.47 L (4.5-5.9) X10^6/uL Hgb 13.9 13.7 (13.5-17.5) g/dL Hct 40.8 L 41.0 (41-53) % MCV 90.5 91.7 (80-100) fL MCH 30.7 30.6 (26-34) PG MCHC 33.9 33.4 (30-36) % RDW 13.9 14.2 (11.6-14.8) % Plt Count 196 188 (150-400) X10^3/uL Neut % (Auto) 89.2 H 92.8 H (50-75) % Lymph % (Auto) 7.7 L 4.6 L (25-40) % Sampson % (Auto) 3.0 2.3 L (3-14) % Eos % (Auto) 0.0 L 0.1 L (2-4) % Baso % (Auto) 0.1 0.2 (0-2) % Neut # (Auto) 24391 H 73592 H (2492-0035) /uL Lymph # (Auto) 1000 L 700 L (4677-8166) /uL Sampson # (Auto) 400 400 (0-900) /uL Eos # (Auto) 0 0 (0-450) /uL Baso # (Auto) 0 0 (0-100) /uL PT (10.1-12.7) SECONDS INR (0.9-1.3) APTT (26-36) SECONDS Sodium 140 (137-145) mmol/L Potassium 3.4 (3.4-5.1) mmol/L Chloride 105 (98-107) mmol/L Carbon Dioxide 25 (22-32) mmol/L BUN 15 (9-20) mg/dL Creatinine 0.64 L (0.66-1.25) mg/dL Estimated GFR > 60 (>60) mL/min BUN/Creatinine Ratio 23.4 H (6-22) Glucose 209 H (80-110) mg/dL Lactate (0.7-2.1) mmol/L Calcium 9.2 (8.4-10.2) mg/dL Total Bilirubin (0.2-1.3) mg/dL AST (17-59) IU/L ALT (<50) IU/L Alkaline Phosphatase (38-126) U/L Total Protein (6.3-8.2) g/dL Albumin (3.5-5.0) g/dL Globulin (1.7-4.1) g/dL Albumin/Globulin Ratio (1.0-2.8) Lipase (23-300) U/L Procalcitonin (<0.5) ng/mL Urine RBC (0-5/HPF) Urine WBC (0-5/HPF) Urine Bacteria (None) Ur Culture Indicated? Micro UA Comment SARS-CoV-2 (PCR) (Negative) Influenza A (RT-PCR) (NEGATIVE) Influenza B (RT-PCR) (NEGATIVE) RSV (PCR) (Negative) 12/16/22 Range/Units 08:12 WBC (4.5-11.0) X10^3/uL RBC (4.5-5.9) X10^6/uL Hgb (13.5-17.5) g/dL Hct (41-53) % MCV (80-100) fL MCH (26-34) PG MCHC (30-36) % RDW (11.6-14.8) % Plt Count (150-400) X10^3/uL Neut % (Auto) (50-75) % Lymph % (Auto) (25-40) % Sampson % (Auto) (3-14) % Eos % (Auto) (2-4) % Baso % (Auto) (0-2) % Neut # (Auto) (8954-0522) /uL Lymph # (Auto) (6010-6289) /uL Sampson # (Auto) (0-900) /uL Eos # (Auto) (0-450) /uL Baso # (Auto) (0-100) /uL PT (10.1-12.7) SECONDS INR (0.9-1.3) APTT (26-36) SECONDS Sodium 141 (137-145) mmol/L Potassium 3.9 (3.4-5.1) mmol/L Chloride 108 H (98-107) mmol/L Carbon Dioxide 24 (22-32) mmol/L BUN 19 (9-20) mg/dL Creatinine 0.64 L (0.66-1.25) mg/dL Estimated GFR > 60 (>60) mL/min BUN/Creatinine Ratio 29.7 H (6-22) Glucose 136 H (80-110) mg/dL Lactate (0.7-2.1) mmol/L Calcium 9.1 (8.4-10.2) mg/dL Total Bilirubin 0.5 (0.2-1.3) mg/dL AST 19 (17-59) IU/L ALT 19 (<50) IU/L Alkaline Phosphatase 64 (38-126) U/L Total Protein 7.7 (6.3-8.2) g/dL Albumin 4.1 (3.5-5.0) g/dL Globulin 3.6 (1.7-4.1) g/dL Albumin/Globulin Ratio 1.1 (1.0-2.8) Lipase 165 D (23-300) U/L Procalcitonin (<0.5) ng/mL Urine RBC (0-5/HPF) Urine WBC (0-5/HPF) Urine Bacteria (None) Ur Culture Indicated? Micro UA Comment SARS-CoV-2 (PCR) (Negative) Influenza A (RT-PCR) (NEGATIVE) Influenza B (RT-PCR) (NEGATIVE) RSV (PCR) (Negative) Urine Dip Bedside Urine Glucose Negative Bedside Urine Bilirubin - Negative Bedside Urine Ketone - Negative Urine Specific [place]ron[place] 1.010 Bedside Urine Occult Blood - Negative Bedside Urine pH 6.0 Bedside Urine Protein +/- 15 Bedside Urine Urobilinogen - Negative Bedside Urine Nitrite - Negative Bedside Urine Leukocytes - Negative Esterase MDM Narrative Medical decision making narrative: Patient is a 62-year-old male history of seizures on Keppra presenting with friend today for 1 week of confusion. Friend states that patient is generally not making any sense. He has been stumbling around. Patient states that he is not felt quite himself. He has low-grade fever here in the ED but he denies any chest pain cough nausea vomiting painful or frequent urination. He does have a slight headache. He reports that he was diagnosed with seizures in [place] by a neurologist who started him on Keppra a couple of months ago. He reports no alcohol abuse he says he had 3 seizures, but it is unclear why he is having seizures. He denies any weakness, numbness tingling. Head CT and CT angio confirm large left frontal mass with small inter parenchymal hemorrhages. There is significant left shift of 1.5 cm [id number] as well. Patient is given dexamethasone to help with vasogenic edema. Mass concerning for glioblastoma. I spoke with Dr. Lopes's at [facility] who requested an MRI. However patient has a [employer] pain stimulator in his left lower quadrant. Hospital policy here states that he can not go into the MRI. Although he likely had MR in [place]. Dr. Lopes's requested chest abdomen pelvis. No further primary cancer is found. This is likely a primary glioblastoma with impending herniation. He remains neurologically intact. Slightly confused but able to ambulate to the restroom. No evidence of infection. No significant leukocytosis or electrolyte abnormality. Patient is on wait list at [facility]. [facility] has been consulted but not taking patients [facility] also consulted not taking patients no wait list on either of those places. [facility] is on a wait list. Patient was signed out to Dr. Macedo for further management. MDM CC: Complicating co-morbidities: Data collected from: Medical records reviewed: Differential considered: Includes but not limited to Exam documented above, pertinent findings include: Lab Test results independently reviewed as above. Pertinent findings: Independently reviewed EKG as above Imaging studies independently reviewed: Consultations: 12:10 a.m.. I did speak with [facility] neurosurgical services Dr. Peters, at this time no surgical intervention indicated. This patient will need medical management and dialogue with oncology and hospice care as well for further prognosis and treatment plan. He will be happy to follow along but at this time patient is nonsurgical, Anushka LUTHER Treatments: Re-evaluations: December 15, 2022 at 2:38 a.m.. Daughter just arrived, she flew in from [place] and just arrived here from the airport from [place]. I have reviewed with her and patient and friends at bedside regarding my discussion with Neurosurgery Dr. Carlson, at this time no surgical intervention indicated. However they do need to decide for treatment plan as far as no treatment/comfort measures or selective treatment and how much they would like to have done. At this time prognosis unknown. Options are unknown for treatment. If they do desire discussion and treatment plans, they do understand he will need to be transferred and wait time is uncertain for bed availability as he is on wait list for many hospitalist up and down [facility]. Other option would be admitted here if comfort measures only. Which would need hospice evaluation. I did speak with hospitalist earlier dr layton, that would be possible to admit here only if DNR and comfort measures only and to pursue hospice care. 3:19 a.m.. I spoke with patient and daughter. They have concluded that they would like full treatment. They would like to pursue transfer in order to speak with Oncology Services and establish treatment plan. Discussion: Appropriate for transfer. Discussion with patient as well as daughter at bedside, they desire to pursue full treatment and would like oncology services. They do not wish for hospice care. Diagnosis: Glioblastoma Disposition: see below, along with detailed discharge instructions that have been reviewed with patient as well as indications for ED re-evaluation and additional outpatient follow up 12/15/22 [id number] ([place]) Patient seen evaluated by myself this morning. Awake alert eating breakfast. Daughter now at bedside. The patient has no complaints this morning. Multiple family members into visit. Neurologically intact ambulating to the restroom. 1415 Dr. Escamilla medical oncology updated on patient's symptoms test results. Based on [place] neurosurgeon recommendation of probable not surgical I asked about medical treatment and transferring to [facility]. However Dr. Escamilla still requests that there be a biopsy and evaluation by Neurosurgery so at this time [facility] is not an appropriate facility for him. Blood work this morning is overall reassuring and stable. Confirmed with [facility] Accepted at Signed out to Dr. Jacquelin roper: Received turned over. Review patient's history and physical exam and workup up to this point. Patient did ambulate to the bathroom. He has Keppra and also steroids scheduled. He is morning labs ordered. Multiple attempts overnight to find facility for placement has been unsuccessful. Care turned over to Dr. Corbett to continue to observe until placement can be found. 12/16/22 Chelle: Patient signed over to myself reviewed patient's history, exam and workup, patient has been ambulating overnight to the bathroom. He has been up spoke with staff several times this morning. Patient alert, clear speech at this time. Some mild confusion but is aware of the current situation and plan. He is currently on Keppra 500 mg b.i.d. as well as dexamethasone 4 mg q.i.d. patient had head CT x2 with no acute warp changer 24 hours, most recent was on 12/14/2022 stable with left frontal lobe mass with intralesional hemorrhage and vasogenic edema, patient has [id number] midline shift without any interval changes no evidence of worsening herniation, interval development of ventricular entrapment. Patient had 1.3 cm of midline shift with near complete effacement of left lateral ventricle and 3rd ventricles. This CT was on 12/14/2022. Patient's labs overall for reassuring and CT chest abdomen pelvis was obtained and no acute changes were found suggesting primary intracranial malignancy. Garcia spected glioblastoma, case was discussed with Oncology patient has felt needed transfer to a facility with Neurosurgery to obtain biopsy, patient has been accepted at [facility]. Facilities have had significant weight times 4 bed availability. Patient is DNR/DNI but open to interventions and pursuing treatment. Spoke with Dr. Holloway, neurosurgery at [facility]. Patient still accepted they would still like him here they are talking with coordinators to try to get him there sooner. He does not feel if patient is not having any acute decompensation that a repeat head CT would be helpful at this point. There had been discussion about MRI of the other day but patient has a neurostimulator so unlikely but we will ask again if possible to get. Does not recommend adding any 3% mannitol unless there is acute changes. Agrees with current course and medications. Dr roper: Received turned over. Reviewed the day's events. Patient has been stable. Does now have a leukocytosis but has also been on steroids. There has been no indication that there is an infectious process. No antibiotics have been administered. We did receive a call from [facility]. They have a bed assignment for him. Dr Campbell accepting provider. Paperwork is signed. He is stable for transport. <Any Corbett, DO - Last Filed: 12/17/22 07:08> Lab Data Labs: Lab Results 12/14/22 12/14/22 12/14/22 Range/Units 10:43 10:54 10:54 WBC 11.3 H (4.5-11.0) X10^3/uL RBC 4.81 (4.5-5.9) X10^6/uL Hgb 15.0 (13.5-17.5) g/dL Hct 43.8 (41-53) % MCV 91.0 (80-100) fL MCH 31.2 (26-34) PG MCHC 34.3 (30-36) % RDW 13.9 (11.6-14.8) % Plt Count 199 (150-400) X10^3/uL Neut % (Auto) 77.5 H (50-75) % Lymph % (Auto) 12.5 L (25-40) % Sampson % (Auto) 8.5 (3-14) % Eos % (Auto) 1.0 L (2-4) % Baso % (Auto) 0.5 (0-2) % Neut # (Auto) 8800 H (2951-8950) /uL Lymph # (Auto) 1400 (1195-6006) /uL Sampson # (Auto) 1000 H (0-900) /uL Eos # (Auto) 100 (0-450) /uL Baso # (Auto) 100 (0-100) /uL PT 15.0 H (10.1-12.7) SECONDS INR 1.3 (0.9-1.3) APTT 28 (26-36) SECONDS Sodium (137-145) mmol/L Potassium (3.4-5.1) mmol/L Chloride (98-107) mmol/L Carbon Dioxide (22-32) mmol/L BUN (9-20) mg/dL Creatinine (0.66-1.25) mg/dL Estimated GFR (>60) mL/min BUN/Creatinine Ratio (6-22) Glucose (80-110) mg/dL Lactate (0.7-2.1) mmol/L Calcium (8.4-10.2) mg/dL Total Bilirubin (0.2-1.3) mg/dL AST (17-59) IU/L ALT (<50) IU/L Alkaline Phosphatase (38-126) U/L Total Protein (6.3-8.2) g/dL Albumin (3.5-5.0) g/dL Globulin (1.7-4.1) g/dL Albumin/Globulin Ratio (1.0-2.8) Lipase (23-300) U/L Procalcitonin (<0.5) ng/mL Urine RBC (0-5/HPF) Urine WBC (0-5/HPF) Urine Bacteria (None) Ur Culture Indicated? Micro UA Comment SARS-CoV-2 (PCR) Negative (Negative) Influenza A (RT-PCR) Flu a negative (NEGATIVE) Influenza B (RT-PCR) Flu b negative (NEGATIVE) RSV (PCR) Negative (Negative) 12/14/22 12/14/22 12/14/22 Range/Units 10:54 10:54 13:00 WBC (4.5-11.0) X10^3/uL RBC (4.5-5.9) X10^6/uL Hgb (13.5-17.5) g/dL Hct (41-53) % MCV (80-100) fL MCH (26-34) PG MCHC (30-36) % RDW (11.6-14.8) % Plt Count (150-400) X10^3/uL Neut % (Auto) (50-75) % Lymph % (Auto) (25-40) % Sampson % (Auto) (3-14) % Eos % (Auto) (2-4) % Baso % (Auto) (0-2) % Neut # (Auto) (7344-8122) /uL Lymph # (Auto) (1188-9389) /uL Sampson # (Auto) (0-900) /uL Eos # (Auto) (0-450) /uL Baso # (Auto) (0-100) /uL PT (10.1-12.7) SECONDS INR (0.9-1.3) APTT (26-36) SECONDS Sodium 140 (137-145) mmol/L Potassium 3.4 (3.4-5.1) mmol/L Chloride 103 (98-107) mmol/L Carbon Dioxide 22 (22-32) mmol/L BUN 17 (9-20) mg/dL Creatinine 0.71 (0.66-1.25) mg/dL Estimated GFR > 60 (>60) mL/min BUN/Creatinine Ratio 23.9 H (6-22) Glucose 128 H (80-110) mg/dL Lactate 1.0 (0.7-2.1) mmol/L Calcium 9.6 (8.4-10.2) mg/dL Total Bilirubin 0.9 (0.2-1.3) mg/dL AST 23 (17-59) IU/L ALT 19 (<50) IU/L Alkaline Phosphatase 72 (38-126) U/L Total Protein 8.6 H (6.3-8.2) g/dL Albumin 4.5 (3.5-5.0) g/dL Globulin 4.1 (1.7-4.1) g/dL Albumin/Globulin Ratio 1.1 (1.0-2.8) Lipase 49 (23-300) U/L Procalcitonin 0.05 (<0.5) ng/mL Urine RBC None seen (0-5/HPF) Urine WBC None seen (0-5/HPF) Urine Bacteria None seen (None) Ur Culture Indicated? Cult not indicated Micro UA Comment Microscopic normal SARS-CoV-2 (PCR) (Negative) Influenza A (RT-PCR) (NEGATIVE) Influenza B (RT-PCR) (NEGATIVE) RSV (PCR) (Negative) 12/15/22 12/15/22 12/16/22 Range/Units 09:11 09:11 08:12 WBC 13.0 H 15.5 H (4.5-11.0) X10^3/uL RBC 4.51 4.47 L (4.5-5.9) X10^6/uL Hgb 13.9 13.7 (13.5-17.5) g/dL Hct 40.8 L 41.0 (41-53) % MCV 90.5 91.7 (80-100) fL MCH 30.7 30.6 (26-34) PG MCHC 33.9 33.4 (30-36) % RDW 13.9 14.2 (11.6-14.8) % Plt Count 196 188 (150-400) X10^3/uL Neut % (Auto) 89.2 H 92.8 H (50-75) % Lymph % (Auto) 7.7 L 4.6 L (25-40) % Sampson % (Auto) 3.0 2.3 L (3-14) % Eos % (Auto) 0.0 L 0.1 L (2-4) % Baso % (Auto) 0.1 0.2 (0-2) % Neut # (Auto) 75831 H 82320 H (7631-1831) /uL Lymph # (Auto) 1000 L 700 L (5881-8423) /uL Sampson # (Auto) 400 400 (0-900) /uL Eos # (Auto) 0 0 (0-450) /uL Baso # (Auto) 0 0 (0-100) /uL PT (10.1-12.7) SECONDS INR (0.9-1.3) APTT (26-36) SECONDS Sodium 140 (137-145) mmol/L Potassium 3.4 (3.4-5.1) mmol/L Chloride 105 (98-107) mmol/L Carbon Dioxide 25 (22-32) mmol/L BUN 15 (9-20) mg/dL Creatinine 0.64 L (0.66-1.25) mg/dL Estimated GFR > 60 (>60) mL/min BUN/Creatinine Ratio 23.4 H (6-22) Glucose 209 H (80-110) mg/dL Lactate (0.7-2.1) mmol/L Calcium 9.2 (8.4-10.2) mg/dL Total Bilirubin (0.2-1.3) mg/dL AST (17-59) IU/L ALT (<50) IU/L Alkaline Phosphatase (38-126) U/L Total Protein (6.3-8.2) g/dL Albumin (3.5-5.0) g/dL Globulin (1.7-4.1) g/dL Albumin/Globulin Ratio (1.0-2.8) Lipase (23-300) U/L Procalcitonin (<0.5) ng/mL Urine RBC (0-5/HPF) Urine WBC (0-5/HPF) Urine Bacteria (None) Ur Culture Indicated? Micro UA Comment SARS-CoV-2 (PCR) (Negative) Influenza A (RT-PCR) (NEGATIVE) Influenza B (RT-PCR) (NEGATIVE) RSV (PCR) (Negative) 12/16/22 Range/Units 08:12 WBC (4.5-11.0) X10^3/uL RBC (4.5-5.9) X10^6/uL Hgb (13.5-17.5) g/dL Hct (41-53) % MCV (80-100) fL MCH (26-34) PG MCHC (30-36) % RDW (11.6-14.8) % Plt Count (150-400) X10^3/uL Neut % (Auto) (50-75) % Lymph % (Auto) (25-40) % Sampson % (Auto) (3-14) % Eos % (Auto) (2-4) % Baso % (Auto) (0-2) % Neut # (Auto) (2563-6778) /uL Lymph # (Auto) (5880-4580) /uL Sampson # (Auto) (0-900) /uL Eos # (Auto) (0-450) /uL Baso # (Auto) (0-100) /uL PT (10.1-12.7) SECONDS INR (0.9-1.3) APTT (26-36) SECONDS Sodium 141 (137-145) mmol/L Potassium 3.9 (3.4-5.1) mmol/L Chloride 108 H (98-107) mmol/L Carbon Dioxide 24 (22-32) mmol/L BUN 19 (9-20) mg/dL Creatinine 0.64 L (0.66-1.25) mg/dL Estimated GFR > 60 (>60) mL/min BUN/Creatinine Ratio 29.7 H (6-22) Glucose 136 H (80-110) mg/dL Lactate (0.7-2.1) mmol/L Calcium 9.1 (8.4-10.2) mg/dL Total Bilirubin 0.5 (0.2-1.3) mg/dL AST 19 (17-59) IU/L ALT 19 (<50) IU/L Alkaline Phosphatase 64 (38-126) U/L Total Protein 7.7 (6.3-8.2) g/dL Albumin 4.1 (3.5-5.0) g/dL Globulin 3.6 (1.7-4.1) g/dL Albumin/Globulin Ratio 1.1 (1.0-2.8) Lipase 165 D (23-300) U/L Procalcitonin (<0.5) ng/mL Urine RBC (0-5/HPF) Urine WBC (0-5/HPF) Urine Bacteria (None) Ur Culture Indicated? Micro UA Comment SARS-CoV-2 (PCR) (Negative) Influenza A (RT-PCR) (NEGATIVE) Influenza B (RT-PCR) (NEGATIVE) RSV (PCR) (Negative) Urine Dip Bedside Urine Glucose Negative Bedside Urine Bilirubin - Negative Bedside Urine Ketone - Negative Urine Specific [place] 1.010 Bedside Urine Occult Blood - Negative Bedside Urine pH 6.0 Bedside Urine Protein +/- 15 Bedside Urine Urobilinogen - Negative Bedside Urine Nitrite - Negative Bedside Urine Leukocytes - Negative Esterase MDM Narrative Medical decision making narrative: Patient is a 62-year-old male history of seizures on Keppra presenting with friend today for 1 week of confusion. Friend states that patient is generally not making any sense. He has been stumbling around. Patient states that he is not felt quite himself. He has low-grade fever here in the ED but he denies any chest pain cough nausea vomiting painful or frequent urination. He does have a slight headache. He reports that he was diagnosed with seizures in [place] by a neurologist who started him on Keppra a couple of months ago. He reports no alcohol abuse he says he had 3 seizures, but it is unclear why he is having seizures. He denies any weakness, numbness tingling. Head CT and CT angio confirm large left frontal mass with small inter parenchymal hemorrhages. There is significant left shift of 1.5 cm [id number]-[id number] as well. Patient is given dexamethasone to help with vasogenic edema. Mass concerning for glioblastoma. I spoke with Dr. Lopes's at [facility] who requested an MRI. However patient has a [employer] pain stimulator in his left lower quadrant. Hospital policy here states that he can not go into the MRI. Although he likely had MR in [place]. Dr. Lopes's requested chest abdomen pelvis. No further primary cancer is found. This is likely a primary glioblastoma with impending herniation. He remains neurologically intact. Slightly confused but able to ambulate to the restroom. No evidence of infection. No significant leukocytosis or electrolyte abnormality. Patient is on wait list at [facility]. [facility] has been consulted but not taking patients [facility] also consulted not taking patients no wait list on either of those places. [facility] is on a wait list. Patient was signed out to Dr. Macedo for further management. MDM CC: Complicating co-morbidities: Data collected from: Medical records reviewed: Differential considered: Includes but not limited to Exam documented above, pertinent findings include: Lab Test results independently reviewed as above. Pertinent findings: Independently reviewed EKG as above Imaging studies independently reviewed: Consultations: 12:10 a.m.. I did speak with [facility] neurosurgical services Dr. Peters, at this time no surgical intervention indicated. This patient will need medical management and dialogue with oncology and hospice care as well for further prognosis and treatment plan. He will be happy to follow along but at this time patient is nonsurgical, Anushka LUTHER Treatments: Re-evaluations: December 15, 2022 at 2:38 a.m.. Daughter just arrived, she flew in from [place] and just arrived here from the airport from [place]. I have reviewed with her and patient and friends at bedside regarding my discussion with Neurosurgery Dr. Carlson, at this time no surgical intervention indicated. However they do need to decide for treatment plan as far as no treatment/comfort measures or selective treatment and how much they would like to have done. At this time prognosis unknown. Options are unknown for treatment. If they do desire discussion and treatment plans, they do understand he will need to be transferred and wait time is uncertain for bed availability as he is on wait list for many hospitalist up and down [facility]. Other option would be admitted here if comfort measures only. Which would need hospice evaluation. I did speak with hospitalist earlier dr layton, that would be possible to admit here only if DNR and comfort measures only and to pursue hospice care. 3:19 a.m.. I spoke with patient and daughter. They have concluded that they would like full treatment. They would like to pursue transfer in order to speak with Oncology Services and establish treatment plan. Discussion: Appropriate for transfer. Discussion with patient as well as daughter at bedside, they desire to pursue full treatment and would like oncology services. They do not wish for hospice care. Diagnosis: Glioblastoma Disposition: see below, along with detailed discharge instructions that have been reviewed with patient as well as indications for ED re-evaluation and additional outpatient follow up 12/15/22 0830 ([place]) Patient seen evaluated by myself this morning. Awake alert eating breakfast. Daughter now at bedside. The patient has no complaints this morning. Multiple family members into visit. Neurologically intact ambulating to the restroom. 1415 Dr. Escamilla medical oncology updated on patient's symptoms test results. Based on [facility] neurosurgeon recommendation of probable not surgical I asked about medical treatment and transferring to [facility]. However Dr. Escamilla still requests that there be a biopsy and evaluation by Neurosurgery so at this time [facility] is not an appropriate facility for him. Blood work this morning is overall reassuring and stable. Confirmed with [facility] Accepted at Signed out to Dr. Jacquelin roper: Received turned over. Review patient's history and physical exam and workup up to this point. Patient did ambulate to the bathroom. He has Keppra and also steroids scheduled. He is morning labs ordered. Multiple attempts overnight to find facility for placement has been unsuccessful. Care turned over to Dr. Corbett to continue to observe until placement can be found. 12/16/22 Chelle: Patient signed over to myself reviewed patient's history, exam and workup, patient has been ambulating overnight to the bathroom. He has been up spoke with staff several times this morning. Patient alert, clear speech at this time. Some mild confusion but is aware of the current situation and plan. He is currently on Keppra 500 mg b.i.d. as well as dexamethasone 4 mg q.i.d. patient had head CT x2 with no acute warp changer 24 hours, most recent was on 12/14/2022 stable with left frontal lobe mass with intralesional hemorrhage and vasogenic edema, patient has [id number] midline shift without any interval changes no evidence of worsening herniation, interval development of ventricular entrapment. Patient had 1.3 cm of midline shift with near complete effacement of left lateral ventricle and 3rd ventricles. This CT was on 12/14/2022. Patient's labs overall for reassuring and CT chest abdomen pelvis was obtained and no acute changes were found suggesting primary intracranial malignancy. Suspected glioblastoma, case was discussed with Oncology patient has felt needed transfer to a facility with Neurosurgery to obtain biopsy, patient has been accepted at [facility] confirmed [facility]. Facilities have had significant weight times 4 bed availability. Patient is DNR/DNI but open to interventions and pursuing treatment. Spoke with Dr. Holloway, neurosurgery at [facility]. Patient still accepted they would still like him here they are talking with coordinators to try to get him there sooner. He does not feel if patient is not having any acute decompensation that a repeat head CT would be helpful at this point. There had been discussion about MRI of the other day but patient has a neurostimulator so unlikely but we will ask again if possible to get. Does not recommend adding any 3% mannitol unless there is acute changes. Agrees with current course and medications. Patient signed out to Dr. Roper while awaiting transfer. Dr roper: Received turned over. Reviewed the day's events. Patient has been stable. Does now have a leukocytosis but has also been on steroids. There has been no indication that there is an infectious process. No antibiotics have been administered. We did receive a call from [facility]. They have a bed assignment for him. Dr Campbell accepting provider. Paperwork is signed. He is stable for transport. Discharge Plan Departure Patient Disposition: [facility] Clinical Impression: Glioblastoma Prescriptions: No Action amoxicillin-pot clavulanate [Augmentin] 875-125 mg tablet 1 tab PO BID Qty: 20 0RF
[2022-12-14] MEDS: SODIUM CHLORIDE 0.9% 1,000 ML 1000 ML IV (11:46)
--- NOTE | 2022-12-14 11:55 | DI.CT.S_ITS ---
PROCEDURE: CT HEAD/BRAIN WO CON INDICATIONS: confusion TECHNIQUE: Noncontrast 4.5 mm thick angled axial sections acquired from the foramen magnum to the vertex, with coronal and sagittal reformats. For radiation dose reduction, the following was used: automated exposure control, adjustment of mA and/or kV according to patient size. COMPARISON: [facility], CR, XR CHEST 1V, 12/14/2022, 11:00. FINDINGS: Extensive vasogenic edema throughout the anterior left frontal lobe with at least 2 and possibly 3 distinct foci of increased density consistent with intraparenchymal hemorrhage, highly suspicious for hemorrhagic metastatic lesions. There is marked duit-od-povac midline shift measuring at least 1.3 cm with near complete effacement of the left lateral ventricle and 3rd ventricle. There is also uncal herniation with moderate effacement of the perimesencephalic and ambient cisterns. No gross orbital abnormality. No suspicious lytic or blastic osseous lesion. Paranasal sinuses and mastoid air cells are clear. IMPRESSION: Multiple anterior left frontal lobe intraparenchymal hemorrhagic lesions with extensive adjacent vasogenic edema, suspicious for possible metastatic lesions. MRI brain with without IV contrast recommended. Neuro surgical consultation is also recommended, as there is moderate to severe mass effect including midline shift and near complete 2/3 ventricular effacement with concern for impending ventricular entrapment. Dictated by: Melvin Lynch M.D. on 12/14/2022 at 12:10 Approved by: Melvin Lynch M.D. on 12/14/2022 at 12:16
[2022-12-14 12:02] VITALS: BP 157/101
[2022-12-14] MEDS: DEXAMETHASONE 10 MG/ML VIAL IV (12:31)
[2022-12-14 13:00] VITALS: BP 166/89; PULSE 81; O2SAT 99
[2022-12-14 13:30] VITALS: BP 145/81; PULSE 84; RESP 18; O2SAT 99
[2022-12-14 13:53] LABS: Bacteria Urine None Seen; Culture Indicated Urine Cult Not Indicated; RBC Urine None Seen (0-5/HPF); Urine Comments Microscopic Normal; WBC Urine None Seen (0-5/HPF)
--- NOTE | 2022-12-14 14:22 | DI.CT.S_ITS ---
PROCEDURE: CT CHEST ABD PEL W CON INDICATIONS: brain mass TECHNIQUE: After the administration of oral and intravenous contrast, axial sections acquired from the supraclavicular neck to the pubic symphysis. Coronal and sagittal reformats were performed. For radiation dose reduction, the following was used: automated exposure control, adjustment of mA and/or kV according to patient size. COMPARISON: [facility], CT, CT HEAD/BRAIN WO CON, 12/14/2022, 15:08. FINDINGS: Image quality: Excellent. CHEST: Lower Neck: No enlarged lymph nodes. Thyroid: Unremarkable. Axillae: No enlarged lymph nodes. Chest Wall: Unremarkable. Lungs and Airways: Mild dependent atelectasis. Right middle lobe calcified granuloma. No consolidation. Airways are clear. No mass. Pleura: No pneumothorax or pleural effusions. Heart: Heart size is normal. No pericardial effusion. Thoracic Vessels: The aorta and pulmonary arteries demonstrate normal size. Mediastinum and Pattie: No enlarged lymph nodes. Esophagus: No wall thickening. No hiatal hernia. ABDOMEN: Liver: Hypodensity in the right lobe of the liver which has the appearance of a benign cyst or hemangioma. Gallbladder: Not distended. Biliary ducts: Unremarkable. Pancreas: No pancreatic ductal dilatation. Spleen: Unremarkable. Adrenal Glands: No nodule.. Kidneys and Ureters: No hydronephrosis. No filling defect within the well opacified ureters. Stomach and Bowel: Stomach, small bowel loops, and colon are unremarkable. Normal appendix. Peritoneum: No abnormal intraperitoneal fluid. No free air. Ventral Wall: No hernia. Left abdominal wall generator device. Abdominal Nodes: No retroperitoneal or mesenteric adenopathy by size criteria. Vessels: Aortic ectasia. Moderate calcified plaque. PELVIS: Pelvic Organs: Prostatomegaly. Median lobe hypertrophy. Bladder: No filling defect. Pelvic Nodes: No enlarged lymph nodes. Miscellaneous: No inguinal hernias are seen. Bones: No suspicious lesion. Thoracic spine thecal lead. IMPRESSION: 1. No mass or adenopathy. No free fluid. 2. Lungs are clear. Comment: Findings were discussed with Evelyne Skaggs at time of dictation. Dictated by: Richard Bullard M.D. on 12/14/2022 at 16:47 Approved by: Richard Bullard M.D. on 12/14/2022 at 16:56
--- NOTE | 2022-12-14 15:00 | DI.CT.S_ITS ---
PROCEDURE: CT HEAD/BRAIN WO CON INDICATIONS: Herniation bleeding comparison TECHNIQUE: Noncontrast 4.5 mm thick angled axial sections acquired from the foramen magnum to the vertex, with coronal and sagittal reformats. For radiation dose reduction, the following was used: automated exposure control, adjustment of mA and/or kV according to patient size. COMPARISON: [facility], CT, CT HEAD/BRAIN WO CON, 12/14/2022, 12:02. FINDINGS: Left frontal lobe mass with associated intralesional hemorrhage and adjacent vasogenic edema is not significantly changed. Left right midline shift is similar without significant interval change. No evidence of worsening herniation or interval development of ventricular entrapment. No periventricular edema identified. IMPRESSION: Stable exam without findings to indicate worsening mass effect/herniation. Intra-axial mass with associated intralesional hemorrhage is not significantly different. Dictated by: Melvin Lynch M.D. on 12/14/2022 at 15:29 Approved by: Melvin Lynch M.D. on 12/14/2022 at 15:32
[2022-12-14 15:48] VITALS: BP 167/90; PULSE 63; RESP 18; O2SAT 100
[2022-12-14] MEDS: levETIRAcetam 500 MG in SODIUM CHLORIDE 0.9% 100 ML 420 MG IV (17:29)
[2022-12-14] MEDS: DEXAMETHASONE 4 MG/ML VIAL IV ×2 (17:30→23:34)
[2022-12-14] MEDS: ACETAMINOPHEN 325 MG TABLET 650 MG PO (17:30)
--- NOTE | 2022-12-14 18:02 | PC.NURSE ---
This patient has been put on the waitlist for [facility] and [facility]. [facility] and [facility] were also contacted, but both were at capacity and had no space on their waitlist.
[2022-12-14 18:45] VITALS: BP 171/89; PULSE 79; RESP 18
[2022-12-15] MEDS: levETIRAcetam 500 MG in SODIUM CHLORIDE 0.9% 100 ML 420 MG IV ×2 (05:19→17:46)
[2022-12-15] MEDS: DEXAMETHASONE 4 MG/ML VIAL IV ×4 (05:19→23:06)
[2022-12-15 07:33] VITALS: BP 144/88; PULSE 69; O2SAT 99
--- NOTE | 2022-12-15 07:44 | PC.NURSE ---
Pt is alert/oriented,denies pain
[2022-12-15 09:40] LABS: Add Manual Diff / Slide Review NO; Basophils Absolute Auto 0 /uL (0-100); Basophils Percent Auto 0.1 % (0-2); Eosinophils Absolute Auto 0 /uL (0-450); Hematocrit 40.8 % (41-53); Hemoglobin 13.9 g/dL (13.5-17.5); Lymphocytes Absolute Auto 1000 /uL (1100-4500); Lymphocytes Percent Auto 7.7 % (25-40); Mean Corpuscular HGB Conc 33.9 % (30-36); Mean Corpuscular Hemoglobin 30.7 PG (26-34); Mean Corpuscular Volume 90.5 fL (80-100); Monocytes Absolute Auto 400 /uL (0-900); Neutrophils Absolute Auto 11600 /uL (1500-7000); Neutrophils Percent Auto 89.2 % (50-75); Platelet Count 196 X10^3/uL (150-400); Red Blood Cell Count 4.51 X10^6/uL (4.5-5.9); Red Cell Distribution Width 13.9 % (11.6-14.8)
[2022-12-15 09:41] LABS: BUN Creatinine Ratio 23.4 (6-22); Blood Urea Nitrogen 15 mg/dL (9-20); Calcium 9.2 mg/dL (8.4-10.2); Carbon Dioxide 25 mmol/L (22-32); Chloride 105 mmol/L (98-107); Estimated Glomerular Filt Rate > 60 mL/min (>60); Glucose 209 mg/dL (80-110); HEMOLYSIS < 15 (0-50); Potassium 3.4 mmol/L (3.4-5.1); Sodium 140 mmol/L (137-145)
[2022-12-15 14:01] VITALS: BP 147/73; PULSE 74; RESP 18; O2SAT 98
[2022-12-15 14:03] VITALS: PULSE 62; RESP 18; O2SAT 98
[2022-12-15 20:21] VITALS: BP 132/82; BP 135/69; PULSE 65; O2SAT 96
[2022-12-15 20:23] VITALS: TEMP 37
[2022-12-16] VITALS (10 sets, daily range): BP systolic 121–154; BP diastolic 64–79; PULSE 61–83; RESP 18–20; TEMP 36.8; O2SAT 92–100
[2022-12-16] MEDS: DEXAMETHASONE 4 MG/ML VIAL IV ×4 (04:23→23:24)
[2022-12-16] MEDS: levETIRAcetam 500 MG in SODIUM CHLORIDE 0.9% 100 ML 420 MG IV ×2 (04:23→17:30)
--- NOTE | 2022-12-16 06:30 | PC.NURSE ---
ELECTRONIC PUBLISHER note: Spoke to Costa at the [facility] around midnight. Put patient on their list. He said to look around. He asked if I spoke to [facility]. I told him I would today. Spoke to Pau at [facility]. She said she would look to see if they had the appropriate bed for Mr. Eli. She called back approximately half hour later, had spoken to their hospitalist. and was talking to another doctor. She said they have a bed for patient, but she needed to talk to her doctors. She asked me to push images over. I sent a facesheet as well. Waiting to hear back Spoke to Costa at [facility] at approximately 0625. He said he spoke to , they had accepted patient to Dr. Friedman, so [facility] would take him off their list. I would need to call [facility]. Called at 0630. Spoke to Cele. She said yes Doctor Friedman accepted, they just didn't have beds. So to wait for a call from them. Waiting on calls from [facility] and . Let RN know.
[2022-12-16 08:22] LABS: Add Manual Diff / Slide Review NO; Basophils Absolute Auto 0 /uL (0-100); Basophils Percent Auto 0.2 % (0-2); Eosinophils Absolute Auto 0 /uL (0-450); Eosinophils Percent Auto 0.1 % (2-4); Hemoglobin 13.7 g/dL (13.5-17.5); Lymphocytes Absolute Auto 700 /uL (1100-4500); Lymphocytes Percent Auto 4.6 % (25-40); Mean Corpuscular HGB Conc 33.4 % (30-36); Mean Corpuscular Hemoglobin 30.6 PG (26-34); Mean Corpuscular Volume 91.7 fL (80-100); Monocytes Absolute Auto 400 /uL (0-900); Monocytes Percent Auto 2.3 % (3-14); Neutrophils Absolute Auto 14400 /uL (1500-7000); Neutrophils Percent Auto 92.8 % (50-75); Platelet Count 188 X10^3/uL (150-400); Red Blood Cell Count 4.47 X10^6/uL (4.5-5.9); Red Cell Distribution Width 14.2 % (11.6-14.8); White Blood Cell Count 15.5 X10^3/uL (4.5-11.0)
[2022-12-16 08:30] LABS: Alanine Aminotransferase 19 IU/L (<50); Alkaline Phosphatase 64 U/L (38-126); Aspartate Aminotransferase 19 IU/L (17-59); BUN Creatinine Ratio 29.7 (6-22); Bilirubin Total 0.5 mg/dL (0.2-1.3); Blood Urea Nitrogen 19 mg/dL (9-20); Calcium 9.1 mg/dL (8.4-10.2); Carbon Dioxide 24 mmol/L (22-32); Chloride 108 mmol/L (98-107); Estimated Glomerular Filt Rate > 60 mL/min (>60); Glucose 136 mg/dL (80-110); HEMOLYSIS < 15 (0-50); Lipase 165 U/L (23-300); Potassium 3.9 mmol/L (3.4-5.1); Sodium 141 mmol/L (137-145); Total Protein 7.7 g/dL (6.3-8.2)
[2022-12-16] MEDS: ACETAMINOPHEN 325 MG TABLET 650 MG PO ×3 (11:24→23:25)
[2022-12-16 16:29] LABS: Albumin 4.5 g/dL (3.5-5.0); Albumin Globulin Ratio 1.1 (1.0-2.8); Globulin 4.1 g/dL (1.7-4.1); HEMOLYSIS 20 (0-50)
[2022-12-16 16:35] LABS: Albumin 4.1 g/dL (3.5-5.0); Albumin Globulin Ratio 1.1 (1.0-2.8); Globulin 3.6 g/dL (1.7-4.1)
[2022-12-17 02:20] VITALS: O2SAT 97
== END 2022-12-17 02:24 | disposition short-term general hospital (02) ==
PROVIDERS: Emergency Medicine; Emergency Provider Emergency Medicine
DX: C71.9 Malignant neoplasm of brain, unspecified (principal); R50.9 Fever, unspecified; Z20.822 Contact with and (suspected) exposure to COVID-19
CPT/HCPCS: 0241U; 36415; 70450; 70496; 70498; 71045; 71260; 74177; 80048; 80053; 81003; 81015; 83605; 83690; 84145; 85025; 85610; 85730; 87040; 93005; 96361; 96365; 96366; 96375; 96376; 99285; J1100; J1953; Q9967